=== PATIENT | male | born 1950 | race Caucasian/White ===

== ENCOUNTER 2022-03-09 10:33 | Outpatient (CLI) | payer MEDICARE, SELFPAY ==
[2022-03-09 22:04] LABS: Albumin* 4.5 g/dL (3.3-5.0); Chloride* 99 mmol/L (96-114)
[2022-03-09 22:05] LABS: Potassium* 4.2 mmol/L (3.6-5.1); Sodium* 134 mmol/L (135-149)
[2022-03-09 22:07] LABS: Alkaline Phosphatase* 119 U/L (40-150); Aspartate Amino Transferase* 39 U/L (12-35); Bilirubin Total* 1.7 mg/dL (0.1-1.5); Blood Urea Nitrogen* 12 mg/dL (7-30); Carbon Dioxide* 26 mmol/L (20-32); Creatinine* 1.3 mg/dL (0.5-1.5); Estimated Glomerular Filt Rate 58 ml/min
[2022-03-09 22:08] LABS: Alanine Aminotransferase* 23 U/L (4-50); Glucose* 80 mg/dL (60-115)
[2022-03-09 22:22] LABS: Vitamin D 25 Hydroxy* 35 ng/mL (30-80)
[2022-03-09 22:38] LABS: PSA Screen* 0.67 ng/mL (0.10-4.00)
[2022-03-09 22:57] LABS: Vitamin B12* 400 pg/mL (243-894)
[2022-03-13 03:53] LABS: Sex Hormone Binding Globulin 112 nmol/L (19-76); Testosterone, Adult Male 815 ng/dL (300-720); Testosterone, Free Calculation 69 pg/mL (47-244); Testosterone, Percentage Free 0.8 % (1.6-2.9)
== END 2022-03-09 10:34 | disposition home or self-care (01) ==
PROVIDERS: PCP Family Medicine; Visit Provider Family Medicine
DX: Z00.00 Encounter for general adult medical examination without abnormal findings (principal); D61.818 Other pancytopenia; E11.9 Type 2 diabetes mellitus without complications; E78.5 Hyperlipidemia, unspecified; K21.9 Gastro-esophageal reflux disease without esophagitis; K90.9 Intestinal malabsorption, unspecified; R53.83 Other fatigue; R79.89 Other specified abnormal findings of blood chemistry
CPT/HCPCS: 80053; 82306; 82607; 84153; 84270; 84402; 84403; 84443

== ENCOUNTER 2022-05-11 09:49 | Outpatient (CLI) | payer MEDICARE, SELFPAY ==
[2022-05-11 10:31] LABS: Creatinine* 1.3 mg/dL (0.5-1.5); Estimated Glomerular Filt Rate 58 ml/min
--- NOTE | 2022-05-11 11:00 | CRLHL7_ITS ---
For Patients: As a result of the Century Cures Act, medical imaging exams and procedure reports are released immediately into your electronic medical record. You may view this report before your referring provider. If you have questions, please contact your health care provider. INDICATION: LYMPHADENOPATHY COMPARISON: none TECHNIQUE: A CT volumetric acquisition was performed of the neck during intravenous infusion of 80 cc Isovue 370 nonionic intravenous contrast. Please note that all CT scans at this facility use dose modulation, iterative reconstruction, and/or weight-based dosing when appropriate to reduce radiation dose to as low as reasonably achievable. FINDINGS: The CT images demonstrate normal aeration of the mastoid air cells and middle ear cavities. The paranasal sinuses are clear. The nasopharynx appears normal. The parotid and submandibular glands are of normal size and have uniform enhancement. The oropharynx appears normal. The valleculae, epiglottis, aryepiglottic folds and piriform sinuses appear normal. There is a normal appearance of the larynx and subglottic trachea. The thyroid gland is of normal size and has uniform density. There is no evidence of lymphadenopathy within the anterior and posterior cervical triangles or within the supraclavicular region. Mild degenerative changes. Lung apices clear. IMPRESSION: No cervical adenopathy. Please note that all CT scans at this facility use dose modulation, iterative reconstruction, and/or weight-based dosing when appropriate to reduce radiation dose to as low as reasonably achievable. Dictated by Fab Gustafson MD @ 05/11/2022 1:21:07 PM (Electronically Signed)
--- NOTE | 2022-05-11 11:00 | CRLHL7_ITS ---
For Patients: As a result of the Century Cures Act, medical imaging exams and procedure reports are released immediately into your electronic medical record. You may view this report before your referring provider. If you have questions, please contact your health care provider. Indication: Lymphadenopathy Technique: Postcontrast CT chest, abdomen and pelvis. 80 cc Isovue 370 intravenous contrast. Please note that all CT scans at this facility use dose modulation, iterative reconstruction, and/or weight-based dosing when appropriate to reduce radiation dose to as low as reasonably achievable. Comparison: 06/08/2017 Findings: In the chest, the lungs are clear. Normal thyroid. No adenopathy. No fracture. No infiltrate or edema. No effusion or pneumothorax. No suspicious nodule. In the abdomen, there is a subcentimeter cyst within the dome of the liver. Normal gallbladder without calcified stones or biliary obstruction. Incidental calcification adjacent to the pancreatic tail. Normal spleen. Scarring involving the left kidney, unchanged. No hydronephrosis. Scarring at the right kidney also unchanged. No retroperitoneal or mesenteric adenopathy. Unremarkable stomach. No adrenal mass. In the pelvis, the bladder is normal. Mild-moderate pelvic free fluid is present. There is no bowel obstruction. No pelvic or inguinal adenopathy. Degenerative facet arthropathy lower lumbar spine with grade 1 degenerative spondylolisthesis of L4 on L5. Impression: No adenopathy of the chest, abdomen or pelvis. Mild-moderate pelvic free fluid, nonspecific. No bowel obstruction. No pulmonary nodule. Bilateral renal cortical scarring, chronic. Please note that all CT scans at this facility use dose modulation, iterative reconstruction, and/or weight-based dosing when appropriate to reduce radiation dose to as low as reasonably achievable. Dictated by Fab Gustafson MD @ 05/11/2022 1:17:45 PM (Electronically Signed)
== END 2022-05-11 09:50 | disposition home or self-care (01) ==
LOC: CT 09:51
PROVIDERS: PCP Family Medicine; Visit Provider Internal Medicine Hematology & Oncology
DX: R59.1 Generalized enlarged lymph nodes (principal); D61.818 Other pancytopenia
CPT/HCPCS: 36415; 70491; 71260; 74177; 82565; Q9967

== ENCOUNTER 2022-08-03 08:34 | Outpatient (CLI) | payer MEDICARE, SELFPAY | END 2022-08-03 08:35 | disposition home or self-care (01) | PROVIDERS: PCP Family Medicine; Visit Provider Family Medicine | DX: Z01.818 Encounter for other preprocedural examination (principal); E55.9 Vitamin D deficiency, unspecified; E78.5 Hyperlipidemia, unspecified; R53.83 Other fatigue; G62.9 Polyneuropathy, unspecified | CPT/HCPCS: 80048; 82306; 82607 ==

== ENCOUNTER 2022-08-08 07:53 | Outpatient (CLI) | payer MEDICARE, SELFPAY ==
--- NOTE | 2022-08-08 09:24 | P.ANES_ITS ---
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
== END 2022-08-08 07:54 | disposition home or self-care (01) ==
LOC: OP CLINIC 07:53
PROVIDERS: PCP Family Medicine; Visit Provider Surgery
DX: Z12.11 Encounter for screening for malignant neoplasm of colon (principal); Z80.0 Family history of malignant neoplasm of digestive organs
CPT/HCPCS: 00812; 45378; 99100; J2704

== ENCOUNTER 2022-09-27 13:00 | Outpatient (CLI) | payer MEDICARE, SELFPAY ==
[2022-09-27 21:14] LABS: Iron* 110 ug/dL (49-181)
[2022-09-27 21:24] LABS: Percent Iron Saturation 30 % (20-50); Total Iron Binding Capacity 371 ug/dL (261-462)
== END 2022-09-27 13:01 | disposition home or self-care (01) ==
LOC: LKVREF 13:01
PROVIDERS: PCP Family Medicine; Visit Provider Family Medicine
DX: D64.9 Anemia, unspecified (principal)
CPT/HCPCS: 82728; 83540; 83550

== ENCOUNTER 2023-01-31 08:52 | Outpatient (CLI) | payer MEDICARE, SELFPAY | END 2023-01-31 08:53 | disposition home or self-care (01) | LOC: NFLDREF 02-03 13:26 | PROVIDERS: PCP Family Medicine; Referring Provider Family Medicine; Visit Provider Family Medicine | DX: Z00.00 Encounter for general adult medical examination without abnormal findings (principal); E55.9 Vitamin D deficiency, unspecified; E78.5 Hyperlipidemia, unspecified; R53.83 Other fatigue; D51.9 Vitamin B12 deficiency anemia, unspecified; G62.9 Polyneuropathy, unspecified; Z12.5 Encounter for screening for malignant neoplasm of prostate | CPT/HCPCS: 80053; 80061; 82306; 84153 ==

== ENCOUNTER 2023-04-19 09:36 | Outpatient (CLI) | payer MEDICARE, SELFPAY | END 2023-04-19 09:37 | disposition home or self-care (01) | LOC: RAD 09:37 | PROVIDERS: PCP Family Medicine; Visit Provider Internal Medicine | DX: I49.9 Cardiac arrhythmia, unspecified (principal); I35.1 Nonrheumatic aortic (valve) insufficiency; R00.1 Bradycardia, unspecified | CPT/HCPCS: 93306 ==

== ENCOUNTER 2023-08-10 11:05 | Outpatient (CLI) | payer MEDICARE, SELFPAY | END 2023-08-10 11:06 | disposition home or self-care (01) | LOC: NFLDREF 08-13 02:42 | PROVIDERS: PCP Family Medicine; Referring Provider Family Medicine; Visit Provider Family Medicine | DX: N39.0 Urinary tract infection, site not specified (principal); D51.9 Vitamin B12 deficiency anemia, unspecified; D61.818 Other pancytopenia | CPT/HCPCS: 80053; 83615 ==

== ENCOUNTER 2023-09-13 13:01 | Outpatient (CLI) | payer MEDICARE, SELFPAY ==
--- OUTSIDE RECORDS SUMMARY | 2023-09-14 12:21 | XMS_ITS | Encounter Summary ---
Author Name Unknown Organization [facility] Address [facility] [place] [address] Care Team Providers Care Keg Header Name Role Phone Chalo Santo MD Unavailable No Ref-Primary, Physician Primary Care Provider Encounter Details Date Type Department Care Team (Late st Contact Info) Description 03/02/2023 [facility] Advice [address] [address] Earnestine Shrama Social History Tobacco Use Types Packs/Day Years Used Date Smoking Tobacco: Never Smokeless Tobacco: Never Alcohol Use Standard Drinks/Week Comments Yes 0 (1 standard drink = 0.6 oz pur e alcohol) PHQ-2 Answer Date Recorded PHQ-2 Score 2 02/28/2023 Adolescent Education Answer Date Record ed Getting School Help Needed Not on file 02/18 Sex and Gender Information Value Date Recorded Sex Assigned at Not on file Gender Identity Not on file Sexual Orientation Not on file documented as of this encounter Plan of Treatment Not on file documented as of this encounter Visit Diagnoses Not on filedocumented in this encounter Care Teams Keg Header Relationship Specialty Start Date End Date No Ref-Primary, Physician PCP - General 07/19/22 Chalo Santo MD [address] [place] [address] [place], [place] [address] Assigned Sleep Provider 02/27/20 documented as of this encounter
--- OUTSIDE RECORDS SUMMARY | 2023-09-14 12:21 | XMS_ITS | Continuity of Care Document ---
Author Name Unknown Organization [facility] Address [address] [address] [place] [address] Phone Care Team Providers Care Vessel Scrapper Name Role Phone Yary Gabriel Unavailable Unavailable Allergies, Adverse Reactions, Alerts Substance Reaction Status Criticality No Known Allergies Active No Inform ation Medications Medication Instructions Dosage Effective Dates (start - stop) Status Comments No Drug Therapy Prescribed Procedures Procedure Date Offic/outpt E&m Estab Mod-hi 2 17 Routine Serum Collection Gg; Iga, Igd, Igg, Igm, Ea Offic/outpt E&m Estab Mod-hi 2 16 Ugi Endo; Dx W/wo Collec Specm 16 Advance Directives Directive Yes / No Effective Date File Name No Information Encounters Encounter Description Practice Location Reason(s) For Visit Diagnoses Date Provider Providers Copied on Encounter [facility], [address] [address], [place], [place], [id number], [place] tel:[phone] [facility] No Information 7 Kathryn Pringle. [address] [facility], [facility] [address], [place], [place], [id number] , [place]. tel:[phone] Offic/outpt E&m Estab Mod-hi 2 [facility], [address] [address], [place], [place], [id number], [place] tel:[phone] [facility] GI Symptoms or Concerns (chief complaint) Alternating constipation and diarrheaWeight lossDietary counseling and surveillance 7 Kathryn Pringle. [address] [facility], [address], [id number] , . tel:[phone] Referring Provider: Sandra GRACIA, [address] [place] [address], [address]. tel:[phone] Offic/outpt E&m Estab Mod-hi 2 [facility], [address] [address], [place], [place], [id number], [place] tel:[phone] [facility] GI Symptoms or Concerns (chief complaint) Gastroesophageal reflux disease without esophagitisDietary counseling and surveillanceElevate d blood-pressure reading, w/o diagnosis of htn 6 Bentley Cash . [address] [place] [address], [place], [id number] , [place]. [phone] Referring Provider: Rian Fernández MD, [address] [place] [address], [address]. tel:[phone] [facility] [place], [address] [address], [place], [place], [id number], [place] tel:[phone] [facility] HeartburnHeartburn 6 Krysten Hyman. [address] [place] [address], [place], [id number] , [place]. [phone] Referring Provider: Rian Fernández MD, [address] [place] [address], [address]. tel:[phone] Family History Family Member Type Diagnosis Age At Onset Mother Problem (finding) malignant neop lasm of breast in first degree relative Mother Problem (finding) Thyroid disorder Mother Problem (finding) cancer of colon Sister Problem (finding) Alive and well Mother Problem (finding) malignant neoplasm of u terus Mother Problem (finding) Irritable bowel disease Father Problem (finding) Payers Payer name Insurance type Covered republican ID Authoriza tion(s) [employer] [place] [employer] [id number] Social History Type Description Quantity Date Captured Comments Alcohol Use Details Unknown Caffeine Use Details Unknown Tobacco Use Status Smoking Status No Information Sex Male Chief Complaint And Reason For Visit No Information Reason For Referral Reason For Referral No Information Plan Of Treatment Date Type Action Status Goal Lifestyle education geeta flores diet completed Goal Lifestyle education geeta flores diet completed History Of Present Illness Encounter Date Complaint History Of Prese nt Illness GI Symptoms or Concerns This is a pleasant 66-year-old male with past medical history significant for sleep apnea, diabetes, Meniere's disease, and malignant melanoma, presenting to clinic today to discuss alternating diarrhea and constipation.The patient states that he has a history of anxiety and panic attacks. His frequency of panic attacks have actually worsened over the last year. His symptoms do include palpitations and head fullness. In December, he told that large meals would be a trigger for his panic attack and therefore he has significantly decreased the amount of food that he is eating and feels this has been helping to manage his panic attacks. He had an evaluation with his primary clinic, which included labs, EKG, stress test, and an echocardiogram reportedly were all negative or normal. 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 He had developed some fullness and discomfort in his neck. 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 He was started on Prilosec 20 mg twice daily back in November. He is now taking it for three months and has had monthly exams through their office and it has been shrinking in size. He did have an upper endoscopy about a week ago, which was entirely normal. There is no evidence for Curtis's esophagus. He reports having occasional acid regurgitation and rare heartburn in the past. There was also occasional tongue irritation for about five to ten years. He attributes these symptoms to reflux and he no longer has them. He did lose 25 pounds recently with the Medifast diet. Now his weight has stabilized. There is occasional hoarseness and throat clearing, but no cough. There is no dysphagia, parvin Functional Status Date Functional Assessmen t No Information Medications Administered Medication Instructions Dosage Effective Dates (start - stop) Status Comments No Drug Therapy Prescribed Instructions Date Instruction Additional Infor willa The patient will und ergo celiac serology testing today. I asked that he reschedule his colonoscopy and we discussed the prep and strategies to help complete it. I asked that he start a fiber supplement daily to help regulate his bowel movements. He can use MiraLax as needed for constipation or Imodium for diarrhea. I stressed the importance of following up with his primary care provider regarding ongoing management of his panic attacks and anxiety. He will follow up in clinic as needed. Related to Alternating constipation and diarrhea Lifestyle education regarding di et Related to Dietary counseling and surveillance I recommend continui ng his treatment for now until the lesion is noted to have resolved. Once it resolves, I would wean down to once daily dosing and then consider slowly weaning off as tolerated. If symptoms return or the lesion returns, then we may have to consider restarting therapy. At that point, I would consider pH testing off of treatment to document the degree of reflux. This may help to guide treatment decisions for long-term therapy if needed. I will plan to see him on an as-needed basis. We discussed typical antireflux precautions as he is doing. I think with his recent weight loss, he has less likelihood of recurrent reflux issues in general. Related to Gastroesophageal reflux disease without esophagitis Lifestyle education regarding di et Related to Dietary counseling and surveillance Assessments Type Assessment Date No Information Patient Care Teams Name Effective Dates (start - stop) Status Members No Information
--- OUTSIDE RECORDS SUMMARY | 2023-09-14 12:21 | XMS_ITS | Encounter Summary ---
Author Name Unknown Organization [facility] Address [address] [place] [address]. [place] [address] Care Team Providers Care Store Person Name Role Phone [facility] Primary Care P jhonny Unavailable Chalo Santo MD Unavailable No Ref-Primary, Physician Primary Care Provider Encounter Details Date Type Department Care Team (Late st Contact Info) Description 10/08/2019 [facility] Medical Advice [address] [address] Melania Chang, [facility] Social History Tobacco Use Types Packs/Day Years Used Date Smoking Tobacco: Never Smokeless Tobacco: Never Alcohol Use Standard Drinks/Week Comments Yes 0 (1 standard drink = 0.6 oz pur e alcohol) Sex and Gender Information Value Date Recorded Sex Assigned at Not on file Gender Identity Not on file Sexual Orientation Not on file documented as of this encounter Plan of Treatment Not on file documented as of this encounter Visit Diagnoses Not on filedocumented in this encounter Care Teams Store Person Relationship Specialty Start Date End Date [facility] CLOSED PCP - General 10/27/14 05/15/22 No Ref-Primary, Physician PCP - General 07/19/22 Chalo Santo MD [address] [address] Assigned Sleep Provider 02/27/20 documented as of this encounter
--- OUTSIDE RECORDS SUMMARY | 2023-09-14 12:21 | XMS_ITS | Encounter Summary ---
Author Name Unknown Organization [place] Address [facility] [place] [address] Care Team Providers Care Customer Solutions Representative Name Role Phone [facility] Primary Care P jhonny Unavailable Chalo Santo MD Unavailable No Ref-Primary, Physician Primary Care Provider Encounter Details Date Type Department Care Team (Late st Contact Info) Description 10/25/2018 Orders Only [facility] [id number] [place] [address] Rosa Echevarria MD [address] [facility] [address] [place] [address] TEODORA on CPAP (Primary Dx) Social History Tobacco Use Types Packs/Day Years [...] documented as of this encounter Visit Diagnoses Diagnosis TEODORA on CPAP- Primary Obstructive sleep apnea (adult) (pediatric) documented in this encounter Care Teams Customer Solutions Representative Relationship Specialty Start Date End Date [facility] CLOSED PCP - General 10/27/14 05/15/22 No Ref-Primary, Physician PCP - General 07/19/22 Chalo Santo MD [address] [place] [address] Assigned Sleep Provider 02/27/20 documented as of this encounter
--- OUTSIDE RECORDS SUMMARY | 2023-09-14 12:21 | XMS_ITS | Data Portability ---
Author Name Unknown Address [address] [place] [address] Phone [phone] Organization [facility] Address [address] [facility] [address] [place] [address] Care Team Providers Care Lot Attendant Name Role Phone DAISHA ANDREWS Primary Care Provider Assessment No assessment recorded. Plan of Treatment Reminders Order Date Submit Date Provider Last Modified By Organization Details Last Modified Time Details Appointments None recorded. Lab urinalysis , dipstick 2023 024 [facility], [address], [place], [address], 14:06:10 Referral None recorded. Procedures bladder scan (PROC) 2023 024 [facility], [address], [place], [address], 14:06:06 Surgeries None recorded. Imaging None recorded. Medication Orders None recorded. Patient TargetsNo targets recorded. Patient Instructions Encounter Date Encounter Id Patient Instructions Last Modified By Organization Details Last Modified Time 09/07/2023 [id number] will send urine for cirrus and call with report. [email or web address] Not available 09/07/2023 14:22:14 Reason for Referral None Reported. Results Created Date Observation Date Name Description Value Unit Range Abnormal Flag LastModifiedBy Organization Detail LastModifiedTime 09/07/19 24 09/07/2023 bladd er scan (PROC ) Volume (in mL) 0 Not Available [facility] [address], [place], [address], 09/07/2023 14:05:40 09/07/19 24 09/07/2023 urina lysis , dipst ick Color-Status Yellow Not Available [facility] [address], [place], [address], 09/07/2023 14:03:43 09/07/19 24 09/07/2023 urina lysis , dipst ick Clarity-Stat us Clear Not Available [facility] [address], [place], [address], 09/07/2023 14:03:43 09/07/19 24 09/07/2023 urina lysis , dipst ick Sp Judsonia-Stat us 1.015 Not Available [facility] [address], [place], [address], 09/07/2023 14:03:43 09/07/19 24 09/07/2023 urina lysis , dipst ick pH-Status 5.5 Not Available [facility] [address], [place], [address], 09/07/2023 14:03:43 09/07/19 24 09/07/2023 urina lysis , dipst ick Nitrates-Sta tus negati ve Not Available [facility] [address], [place], [address], 09/07/2023 14:03:43 09/07/19 24 09/07/2023 urina lysis , dipst ick Blood-Status Negati ve Not Available [facility] [address], [place], [address], 09/07/2023 14:03:43 09/07/19 24 09/07/2023 urina lysis , dipst ick Leuko-Status Negati ve Not Available [facility] [address], [place], [address], 09/07/2023 14:03:43 09/07/19 24 09/07/2023 urina lysis , dipst ick Specimen Type Voided Not Available [facility] [address], [place], [address], 09/07/2023 14:03:43 09/07/19 24 09/07/2023 urina lysis , dipst ick Performed by Anand mcfadden RN Not Available [facility] [address], [place], [address], 09/07/2023 14:03:43 Result Notes None recorded. Procedures Surgical History Date Name Laterality Status Provider Name and Address Organization Details Recorded Time 09/07/19 24 Urinalysis completed [facility] 09/07/2023 14:02:41 09/07/19 24 Bladder Scan completed [facility] 09/07/2023 14:02:47 05/07/19 23 total replacement of left hip joint completed [facility] 09/07/2023 14:04:17 05/07/19 14 excision of melanoma completed [facility] 09/07/2023 14:05:31 Imaging Results None recorded. Procedure Notes None recorded. Medical Equipment None Reported. Allergies No known drug allergies Medications Name Sig Start Date Stop Date Status Note LastModified by Organization Details LastModified Time gabapentin 300 mg capsule TAKE 1 CAPSULE BY MOUTH 1 HOUR BEFORE BEDTIME FOR 7 DAYS. THEN TAKE 2 CAPSULES 1 HOUR BEFORE BEDTIME 09/06 completed Not Available Not Available Not Available Vitals Date Recorded Body height Body mass index (BMI) Body weight Provider Name and Address Organization Details Last Updated DateTime 09/07/2023 185.42 cm 21.6 kg/m2 95361.15 g Bessie Reyes [facility] 09/07/2023 14:01:57 Social History Question Answer Notes LastModified by Organizat ion Details LastModified Time Tobacco Smoking Status Former Smoker [facility] 09/07/2023 14:03:31 What Is Your Level Of Alcohol Consumption? None Information not available 09/07/2023 When Did You Quit Smoking? 16+yearssinc elastcigaret te cwill5 Information not available 09/07/2023 What Was The Date Of Your Most Recent Tobacco Screening? 09/07/2023 Information not available 09/07/2023 Has Tobacco Cessation Counseling Been Provided? No Information not available 09/07/2023 Do You Or Have You Ever Used Any Other Forms Of Tobacco Or Nicotine? No Information not available 09/07/2023 Sex: Male Functional Status None recorded. Mental Status None recorded. Family History Relationship Description Onset Age of this Age Resolved Age Notes Unspecified Relation Family history of prostate cancer Medical History No medical history recorded. Past Encounters Encounter ID Performer Location Encounter Start Date Encounter Closed Date Diagnosis/Indication Diagnosis SNOMED-CT Code [id number] Constantino Cheung MD [facility] [address] [facility] [place] [address] 09/07/2023 13:45:46 09/10/2023 13:39:13 Dysuria [id number] Health Concerns Section Related Observation LastModified by Organization Detai ls LastModified Time None Recorded Concern Status LastModified by Organization Details LastModified Time None Recorded Advance Directives Directive None Recorded Payers Encounter Date Sequence Insurance Name Policy Number Policy Acosta Covered Member ID Acosta Member ID Guarantor Name 09/07/2023 1 [facility] [id number] Geremias Dyson [id number] Geremias Dyson Notes Date Note Type Note Provider Name and Address Organization Details Recorded Time 09/07/2023 text/html HPI Notes: seeing for dysuria at start of stream feels at end of penis. started imn July became worse and now been improving. no gross heme, PSA last Fall was 0.71, UA clear and PVR 0ml today. no prostate or bladder meds. no hx straddle injury, no prostate or bladder surgery. force of stream no change. nocturia 1-2x, daytime frequency OK. no split stream or spraying. a paternal cousin had CaP. Constantino Cheung MD [address] [facility],[address], [place], [address], [facility] 09/07/2023 14:23:15
--- OUTSIDE RECORDS SUMMARY | 2023-09-14 12:21 | XMS_ITS | Referral Summary ---
Author Name Unknown Organization [place] Address [address] [place] [address]. [place] [address] Care Team Providers Care Nursing Scheduler Name Role Phone Chalo Santo MD Unavailable No Ref-Primary, Physician Primary Care Provider Allergies No known active allergies Medications Medication Sig Dispensed Refills Start Date End Date Status Digestive Enzymes (BETAINE HCL PO) Take 2-4 capsules by mouth daily Per pt, takes with 4 to 8 ounces of protein Active Nutritional Supplements (ADULT NUTRITIONAL SUPPLEMENT + OR) Vitamin D3 + K2 liquid. Pt uses 16 drops daily. Active MAGNESIUM PO Take 0.25-0.5 teaspoonful by mouth daily Natural Vitality Calm Magnesium Powder. Pt alternates between 1/4 and 1/2 teaspoon of powder, every other day; mixes with 16 oz of warm water. Active UNABLE TO FIND Apply 1 spray topically daily Liquid Magnesium Body [place]. 1 spray on each thigh. Active Active Problems Problem Noted Date Diagnosed Date Hip fracture 05/11/2022 Severe obstructive sleep apnea 10/14/2019 Social History Tobacco Use Types Packs/Day Years Used Date Smoking Tobacco: Never Smokeless Tobacco: Never Tobacco Cessation:Counseling Given: Not Answered Alcohol Use Standard Drinks/Week Comments Yes 0 (1 standard drink = 0.6 oz pur e alcohol) PHQ-2 Answer Date Recorded PHQ-2 Score 2 02/28/2023 Adolescent Education Answer Date Record ed Getting School Help Needed Not on file 02/18 Sex and Gender Information Value Date Recorded Sex Assigned at Not on file Gender Identity Not on file Sexual Orientation Not on file Last Filed Vital Signs Vital Sign Reading Time Taken Comments Blood Pressure 125/55 05/13/2022 3:57 PM RECEIVER DISPATCHER Pulse 63 05/13/2022 3:57 PM RECEIVER DISPATCHER Temperature 36.8 ??C (98.3 ??F) 05/13/2022 3:57 PM CS T Respiratory Rate 16 05/13/2022 3:57 PM RECEIVER DISPATCHER Oxygen Saturation 97% 05/13/2022 3:57 PM RECEIVER DISPATCHER Inhaled Oxygen Concentration - - Weight 72.6 kg (160 lb) 02/28/2023 3:35 PM CDT Height 185.4 cm (6' 1) 02/28/2023 3:35 PM CDT Body Mass Index 21.11 02/28/2023 3:35 PM CDT Plan of Treatment Not on file Medical Devices Implanted Type Area Marketing Communications Manager Device Identifier Shelf Expiration Date Model / Serial / Lot Imp Cable Zim Cerclage 1.8x25mm 2231-08-23 - [id number] Implanted:Qty : 1 on 05/12/2022 by Be Fletcher MD at [facility] Metallic Hardware/An chor Left: Hip [employer] [id number] 08/16/20312-0 08-22 / [id number] Shell Actb 56mm Hip Ch Urbina Trdnt Ii Psl F Strl 74--56f - [id number] Implanted:Qty : 1 on 05/12/2022 by Be Fletcher MD at [facility] Total Joint Component/I nsert Left: Hip MARI [employer] [id number] 03/02/2027 742-11-56 F / / [id number] Insert Blake 36mm 0d F Hip X3 Trdnt 723-00-36f - [id number] Implanted:Qty : 1 on 05/12/2022 by Be Fletcher MD at [facility] Total Joint Component/I nsert Left: Hip [employer] [id number] 02/06/2027 723-00-36 F / / [id number] Insignia Hip Stem, Size 6, Nk Length 35mm, Stem Length 107mm, Std Offset Implanted:Qty : 1 on 05/12/2022 by Be Fletcher MD at [facility] Total Joint Component/I nsert Left: Hip MARI [id number] 01/19/2027 5087-7150 / / [id number] Imp Head Femoral Strk Biolox Delta Ceramic 36mm +2.5mm - [id number] Implanted:Qty : 1 on 05/12/2022 by Be Fletcher MD at [facility] Total Joint Component/I nsert Left: Hip [employer] [id number] 01/12/2027 6570-0-53 6 / [id number] Procedures Procedure Name Priority Date/Time Associated Diagnosis Comments GLUCOSE Routine 05/13/2022 6:57 AM RECEIVER DISPATCHER from Last 3 Months or Most Recently Relevant to Health Maintenance Results * (ABNORMAL) Glucose (05/13/2022 6:57 AM RECEIVER DISPATCHER) Glucose 133(H) 70 - 99 mg/dL 05/13/2022 7:25 AM RECEIVER DISPATCHER LABORATORY Blood STRUCTURE OF LEFT HAND / Unknown Venipuncture / Unknown 05/13/2022 6:57 AM RECEIVER DISPATCHER 05/13/2022 7:01 AM RECEIVER DISPATCHER Carlos Oleary MD LAB - BLOOD ORDERABL ES LABORATORY [facility] [address] Lab (1st floor, no room number) [place] [address] [phone] from Last 3 Months or Most Recently Relevant to Health Maintenance Advance Directives For more information, please contact: [phone] * Full Code (Latest Code Status on File) Date Activated Date Inactivated Comments 05/12/2022 7:04 PM 05/13/2022 7:02 PM All basic and advanced life-sustaining interventions are performed as appropriate Question Answer Comments Code status determined by: Unable to det ermine; FULL CODE until documents or legal decision maker available * Full Code Date Activated Date Inactivated Comments 05/11/2022 6:50 PM 05/12/2022 7:04 PM All basic and advanced life-sustaining interventions are performed as appropriate Question Answer Comments Code status determined by: Discussion with patie nt/ legal decision maker Care Teams Nursing Scheduler Relationship Specialty Start Date End Date No Ref-Primary, Physician PCP - General 07/19/22 Chalo Santo MD [address] [address] Assigned Sleep Provider 02/27/20
--- OUTSIDE RECORDS SUMMARY | 2023-09-14 12:21 | XMS_ITS | Encounter Summary ---
Author Name Unknown Organization [place] Address [address] [place] [address] Care Team Providers Care Veterinary Receptionist Name Role Phone [facility] Primary Care P jhonny Unavailable Chalo Santo MD Unavailable No Ref-Primary, Physician Primary Care Provider Encounter Details Date Type Department Care Team (Late st Contact Info) Description 10/28/2021 [facility] [place] Medical Advice [facility] [address] [phone] Marianna Irwin CMA Social History Tobacco Use Types Packs/Day Years Used Date Smoking Tobacco: Never Smokeless Tobacco: Never Alcohol Use Standard Drinks/Week Comments Yes 0 (1 standard drink = 0.6 oz pur e alcohol) PHQ-2 Answer Date Recorded PHQ-2 Score 2 10/04/2021 Sex and Gender Information Value Date Recorded Sex Assigned at Not on file Gender Identity Not on file Sexual Orientation Not on file documented as of this encounter Plan of Treatment Not on file documented as of this encounter Visit Diagnoses Not on filedocumented in this encounter Care Teams Veterinary Receptionist Relationship Specialty Start Date End Date [facility] CLOSED PCP - General 10/27/14 05/15/22 No Ref-Primary, Physician PCP - General 07/19/22 Chalo Santo MD [address] [place], [place] [address] Assigned Sleep Provider 02/27/20 documented as of this encounter
--- OUTSIDE RECORDS SUMMARY | 2023-09-14 12:21 | XMS_ITS | Clinical Summary ---
Author Name Unknown Organization [place] Address [address] [place] [address]. [place] [address] Care Team Providers Care Fruit Picker Name Role Phone Chalo Santo MD Unavailable [...] 1 spray topically daily Liquid Magnesium Body [place]. 1 spray on each thigh. Active Active [...] Comments Blood Pressure 125/55 05/13/2022 3:57 PM TEMPERATURE REGULATOR Pulse 63 05/13/2022 3:57 PM TEMPERATURE REGULATOR Temperature 36.8 ??C (98.3 ??F) 05/13/2022 3:57 PM CS T Respiratory Rate 16 05/13/2022 3:57 PM TEMPERATURE REGULATOR Oxygen Saturation 97% 05/13/2022 3:57 PM TEMPERATURE REGULATOR Inhaled Oxygen Concentration - - Weight 72.6 kg (160 lb) 02/28/2023 3:35 PM CDT Height 185.4 cm (6' 1) 02/28/2023 3:35 PM CDT Body Mass Index 21.11 02/28/2023 3:35 PM CDT Plan of Treatment Health Maintenance Due Date Last Done Comments ADVANCE CARE PLANNING 1949 ANNUAL REVIEW OF HM ORDERS 1949 CT COLONOGRAPHY 1949 FIT 1949 FLEX SIG 1949 sDNA (Cologuard) 1949 COLONOSCOPY 08/31/1959 COLORECTAL CANCER SCREENING 08/31/1959 HEPATITIS C SCREENING 08/31/1967 DTAP/TDAP/TD IMMUNIZATION (1 - Tdap) 1974 LIPID 1989 ZOSTER IMMUNIZATION (1 of 2) 08/31/1999 RSV VACCINE ( & 60+) (1 - 1-dose 60+ series) 2009 FALL RISK ASSESSMENT 2014 MEDICARE ANNUAL WELLNESS VISIT 2014 Pneumococcal Vaccine: 65+ Years (1 of 1 - PCV) 2014 COVID-19 Vaccine (1 - 2022- season) 2023 INFLUENZA VACCINE (#1) 2023 PHQ-2 (once per calendar year) 2023 02/28/2023, 10/04/2021 GLUCOSE 05/13/2025 05/13/2022, 10/2022, 05/12/2022, Additional history exists HPV IMMUNIZATION Aged Out No longer e ligible based on patient's age to complete this topic IPV IMMUNIZATION Aged Out No longer e ligible based on patient's age to complete this topic MENINGITIS IMMUNIZATION Aged Out No l onger eligible based on patient's age to complete this topic RSV MONOCLONAL ANTIBODY Aged Out No l onger eligible based on patient's age to complete this topic Medical Devices Implanted Type Area Radiology Nurse Device Identifier Shelf Expiration Date Model / Serial / Lot Imp Cable Zim Cerclage 1.8x25mm 2231-08-23 - [id number] Implanted:Qty : 1 on 05/12/2022 by Be Fletcher MD at [facility] Metallic Hardware/An chor Left: Hip [employer] [id number] 08/16/2031 00-2232-0 08-22 / [id number] Shell Actb 56mm Hip Ch Urbina Trdnt Ii Psl F Strl 7406-17-56f - [id number] Implanted:Qty : 1 on 05/12/2022 by Be Fletcher MD at [facility] Total Joint Component/I nsert Left: Hip [employer] [id number] 03/02/2027 742-11-56 F / / [id number] Insert Blake 36mm 0d F Hip X3 Trdnt 723-00-36f - [id number] Implanted:Qty : 1 on 05/12/2022 by Be Fletcher MD at [facility] Total Joint Component/I nsert Left: Hip [employer] [id number] 02/06/2027 723-00-36 F / / [id number] Insignia Hip Stem, Size 6, Nk Length 35mm, Stem Length 107mm, Std Offset Implanted:Qty : 1 on 05/12/2022 by Be Fletcher MD at [facility] Total Joint Component/I nsert Left: Hip MARI [id number] 01/19/2027 1177-1378 / / [id number] Imp Head Femoral Strk Biolox Delta Ceramic 36mm +2.5mm - [id number] Implanted:Qty : 1 on 05/12/2022 by Be Fletcher MD at [facility] Total Joint Component/I nsert Left: Hip [employer] [id number] 01/12/2027 6570-0-53 6 / / [id number] Procedures Procedure Name Priority Date/Time Associated Diagnosis Comments GLUCOSE Routine 05/13/2022 6:57 AM TEMPERATURE REGULATOR from Last 3 Months or Most Recently Relevant to Health Maintenance Results * (ABNORMAL) Glucose (05/13/2022 6:57 AM TEMPERATURE REGULATOR) Glucose 133(H) 70 - 99 mg/dL 05/13/2022 7:25 AM TEMPERATURE REGULATOR LABORATORY Blood STRUCTURE OF LEFT HAND / Unknown Venipuncture / Unknown 05/13/2022 6:57 AM TEMPERATURE REGULATOR 05/13/2022 7:01 AM TEMPERATURE REGULATOR Carlos Oleary MD LAB - BLOOD ORDERABL ES LABORATORY [facility] [address] [facility] Lab (1st floor, no room number) [place] [address], [facility] [phone] from Last 3 Months or Most Recently Relevant to Health Maintenance Advance Directives For more information, please contact: [phone] * Full Code (Latest Code Status on [...] patie nt/ legal decision maker Care Teams Fruit Picker Relationship Specialty Start Date End Date No Ref-Primary, Physician PCP - General 07/19/22 Chalo Santo MD [address] [address] Assigned Sleep Provider 02/27/20
== END 2023-09-13 13:02 | disposition home or self-care (01) ==
LOC: NFLDREF 09-14 12:19
PROVIDERS: PCP Family Medicine; Referring Provider Family Medicine; Visit Provider Family Medicine
DX: D51.9 Vitamin B12 deficiency anemia, unspecified (principal); E55.9 Vitamin D deficiency, unspecified
CPT/HCPCS: 82607; 82652

== ENCOUNTER 2023-11-06 13:00 | Outpatient (CLI) | payer MEDICARE, SELFPAY ==
--- OUTSIDE RECORDS SUMMARY | 2023-11-09 10:02 | XMS_ITS | Encounter Summary ---
Author Organization [place] Address [facility] [place] [address] Care Team Providers Care Pipe Wrapping Machine Operator Name Role Phone [facility] Primary Care P jhonny Unavailable Chalo Santo MD Unavailable No Ref-Primary, Physician Primary Care Provider Encounter Details Date Type Department Care Team (Late st Contact Info) Description 10/28/2021 [facility] [place] Adv[place] [facility] [address] [phone] Marianna Irwin CMA Social History Tobacco Use [...] on filedocumented in this encounter Care Teams Pipe Wrapping Machine Operator Relationship Specialty Start Date End Date [facility] CLOSED PCP - General 10/27/14 05/15/22 No Ref-Primary, Physician PCP - General 07/19/22 Chalo Santo MD [address] [place], [place] [id number] Assigned Sleep Provider 02/27/20 documented as of this encounter
--- OUTSIDE RECORDS SUMMARY | 2023-11-09 10:02 | XMS_ITS | Clinical Summary ---
Author Organization [facility] [employer] Address [place], [place] [address] Care Team Providers Care Vault Installer Name Role Phone Anjana Victor Primary Care Provider Unavail able Allergies No known active allergies Medications Medication Sig Dispensed Refills Start Date End Date Status Magnesium 30 mg tablet Take 20 mg by mouth once daily. 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 ECHO 04/2023, ZIO MAILED 09/03/BRADYCARDIA /PT states feeling not too bad./No unusual cardiac symptoms from what he is already experiencing./Increa sed heart rate with pounding. 1 or 2 irregular beats /Discuss swelling in lower legs and feet./) 10/12/2023 Travel 09/03/2023 Orders Only [facility] [address] [place] [address] Jos Rosado 1 scan: (1-Ord) ZIO FINAL REPORT from Last 3 Months Social History Tobacco Use Types Packs/Day Years Used Date Smoking Tobacco: Former Cigarettes Smokeless Tobacco: Never Tobacco Cessation:Counseling Given: Not Answered Alcohol Use Standard Drinks/Week Comments Not Currently 0 (1 standard drink = 0.6 oz pur e alcohol) Social Connections Answer Date Recorded Frequency of Communication with Friends and Fami ly Not on file 03/23/2023 Sex and Gender Information Value Date Recorded Sex Assigned at Not on file Gender Identity Not on file Sexual Orientation Not on file Obstetrics History Last Filed Vital Signs Vital Sign Reading Time Taken Comments Blood Pressure 116/60 10/12/2023 11:39 AM CDT Pulse 56 10/12/2023 11:39 AM CDT Temperature 36.8 ??C (98.2 ??F) 01/26/2009 11:52 AM C DT Respiratory Rate 16 01/26/2009 12:34 PM CDT Oxygen Saturation 100% 10/12/2023 11:39 AM CDT Inhaled Oxygen Concentration - - Weight 75.6 kg (166 lb 9.6 oz) 10/12/2023 11:39 AM CDT Height 188 cm (6' 2) 10/12/2023 11:39 AM CDT Body Mass Index 21.39 10/12/2023 11:39 AM CDT Plan of Treatment Health Maintenance Due Date Last Done Comments Pneumococcal series for age 65+ (1 of 2 - PCV) 956 Tdap 1960 Depression screening for age 12+ 1961 Hepatitis C screening for age 18-79 08/31/1967 Tetanus booster 1969 Colonoscopy through age 75 1994 Lipids for age 45-75 1994 Zoster (shingles) series for age 50+ (1 of 2) 08/31/19 00 AAA screening age 65-74 2014 Medicare Wellness for age 65+ 2014 COVID-19 vaccine series ( - season) Influenza for age 65+ 01/06/2024 BMI (ht and wt on same day) for age 18+ 10/11/2024 0 10/12/2023 Procedures Procedure Name Priority Date/Time Associated Diagnosis Comments EXTENDED HOLTER Routine 09/20/2023 Bradycardia from Last 3 Months Results * ZIO PATCH XT - weekly to monthly symptoms. (09/20/2023) Narrative RayshawnHarish Mita-Pita - 09/20/2023 Patient enrolled with vendor this date for Extended Holter home enrollment, duration 7 days. Device will be mailed to patient by vendor. ??Report will be found in the Procedures tab approximately 7-10 days after end of monitor period. Lou Kidd MD CARDIAC SERVICES ORD from Last 3 Months Advance Directives * Full Code (Latest Code Status on File) Date Activated Date Inactivated Comments 01/26/2009 11:47 AM 01/26/2009 3:48 PM * Full Code Date Activated Date Inactivated Comments 01/26/2009 9:00 AM 01/26/2009 11:47 AM Care Teams Vault Installer Relationship Specialty Start Date End Date Anjana Victor PCP - General 01/22/09
--- OUTSIDE RECORDS SUMMARY | 2023-11-09 10:02 | XMS_ITS | Encounter Summary ---
Author Organization [place] Address [address] [place] [address]. [place] [address] Care Team Providers Care Doors Prefitter Name Role Phone [facility] Primary Care P jhonny Unavailable Chalo Santo MD Unavailable No Ref-Primary, Physician Primary Care Provider Encounter Details Date Type Department Care Team (Late st Contact Info) Description 10/08/2019 [facility] [place] Medical Advice [address] [phone] Melania Chang, [facility] Social History Tobacco Use Types Packs/Day Years [...] on filedocumented in this encounter Care Teams Doors Prefitter Relationship Specialty Start Date End Date [facility] CLOSED PCP - General 10/27/14 05/15/22 No Ref-Primary, Physician PCP - General 07/19/22 Chalo Santo MD [address] [address] Assigned Sleep Provider 02/27/20 documented as of this encounter
--- OUTSIDE RECORDS SUMMARY | 2023-11-09 10:02 | XMS_ITS | Clinical Summary ---
Author Organization [place] Address [address] [place] [address]. [place] [address] Care Team Providers Care Shuttle Spotter Name Role Phone Chalo Santo MD Unavailable [...] 1 spray topically daily Liquid Magnesium Body [place]. 1 spray on each thigh. Active Active [...] Comments Blood Pressure 125/55 05/13/2022 3:57 PM SLACK LINE YARDER Pulse 63 05/13/2022 3:57 PM SLACK LINE YARDER Temperature 36.8 ??C (98.3 ??F) 05/13/2022 3:57 PM CS T Respiratory Rate 16 05/13/2022 3:57 PM SLACK LINE YARDER Oxygen Saturation 97% 05/13/2022 3:57 PM SLACK LINE YARDER Inhaled Oxygen Concentration - - Weight 72.6 [...] COVID-19 Vaccine (1 - 2022- season) 2023 PHQ-2 (once per calendar year) 2023 02/28/2023, 10/04/2021 INFLUENZA VACCINE (#1) 2024 GLUCOSE 05/13/2025 05/13/2022, 10/2022, 05/12/2022, Additional history [...] this topic Medical Devices Implanted Type Area Data Migration Consultant Device Identifier Shelf Expiration Date Model / Serial / Lot Imp Cable Zim Cerclage 1.8x25mm 2231-08-23 - [id number] Implanted:Qty : 1 on 05/12/2022 by Be Fletcher MD at [facility] Metallic Hardware/An chor Left: Hip [employer] [id number] 08/16/2031 00-2232-0 08-22 / [id number] Shell Actb 56mm Hip Ch Urbina Trdnt Ii Psl F Strl 7406-17-56f - [id number] Implanted:Qty : 1 on 05/12/2022 by Be Fletcher MD at [facility] Total Joint Component/I nsert Left: Hip [employer] [id number] 03/02/2027 742-11-56 F / / [id number] Insert Blake 36mm 0d F Hip X3 Trdnt 723-00-36f - [id number] Implanted:Qty : 1 on 05/12/2022 by Be Fletcher MD at [facility] Total Joint Component/I nsert Left: Hip MARI [employer] [id number] 02/06/2027 723-00-36 F / / [id number] Insignia Hip Stem, Size 6, Nk Length 35mm, Stem Length 107mm, Std Offset Implanted:Qty : 1 on 05/12/2022 by Be Fletcher MD at [facility] Total Joint Component/I nsert Left: Hip MARI [id number] 01/19/2027 2501-9940 / / [id number] Imp Head Femoral Strk Biolox Delta Ceramic 36mm +2.5mm - [id number] Implanted:Qty : 1 on 05/12/2022 by Be Fletcher MD at [facility] Total Joint Component/I nsert Left: Hip [employer] [id number] 01/12/2027 6570-0-53 6 / / [id number] Procedures Procedure Name Priority Date/Time Associated Diagnosis Comments GLUCOSE Routine 05/13/2022 6:57 AM SLACK LINE YARDER from Last 3 Months or Most Recently Relevant to Health Maintenance Results * (ABNORMAL) Glucose (05/13/2022 6:57 AM SLACK LINE YARDER) Glucose 133(H) 70 - 99 mg/dL 05/13/2022 7:25 AM SLACK LINE YARDER LABORATORY Blood STRUCTURE OF LEFT HAND / Unknown Venipuncture / Unknown 05/13/2022 6:57 AM SLACK LINE YARDER 05/13/2022 7:01 AM SLACK LINE YARDER Carlos Oleary MD LAB - BLOOD ORDERABL ES LABORATORY [facility] [address] Lab (1st floor, no room number) [place] [address], [facility] [phone] from Last 3 Months or Most Recently Relevant to Health Maintenance Advance Directives For more information, please contact: [phone] * Full Code (Latest Code Status on [...] patie nt/ legal decision maker Care Teams Shuttle Spotter Relationship Specialty Start Date End Date No Ref-Primary, Physician PCP - General 07/19/22 Chalo Santo MD [address] [address] Assigned Sleep Provider 02/27/20
--- OUTSIDE RECORDS SUMMARY | 2023-11-09 10:02 | XMS_ITS | Encounter Summary ---
Author Organization [place] Address [address] [place] [address]. [place] [address] Care Team Providers Care Maintenance Shop Welder Name Role Phone [facility] Primary Care P jhonny Unavailable Chalo Santo MD Unavailable No Ref-Primary, Physician Primary Care Provider Encounter Details Date Type Department Care Team (Late st Contact Info) Description 01/06/2021 [facility] [place] Medical Advice [address] [phone] Asif Bertrand MA Social History Tobacco Use Types Packs/Day Years [...] on filedocumented in this encounter Care Teams Maintenance Shop Welder Relationship Specialty Start Date End Date [facility] CLOSED PCP - General 10/27/14 05/15/22 No Ref-Primary, Physician PCP - General 07/19/22 Chalo Santo MD [address] [address] Assigned Sleep Provider 02/27/20 documented as of this encounter
--- OUTSIDE RECORDS SUMMARY | 2023-11-09 10:02 | XMS_ITS | Continuity of Care Document ---
Author Organization [facility] Address [address] [address] [place] [address] Phone Care Team Providers Care Bail Attacher Name Role Phone Yary Gabriel Unavailable Unavailable [...] Diagnoses Date Provider Providers Copied on Encounter [facility], [address] [address], [place], [place], [id number], [place] tel:[phone] [facility] No Information 7 Kathryn Pringle. [address] [address], [place], [place], [id number] , [place]. [phone] Offic/outpt E&m Estab Mod-hi 2 [facility], [address] [address], [place], [place], [id number], [place] tel:[phone] [facility] GI Symptoms or Concerns (chief complaint) Alternating constipation and diarrheaWeight lossDietary counseling and surveillance 7 Kathryn Pringle. [address] [address], [place], [place], [id number] , . tel:[phone] Referring Provider: Sandra GRACIA, [address] [place] [address], [address]. tel:[phone] Offic/outpt E&m Estab Mod-hi 2 [facility], [address] [address], [place] [place], [id number], [place] tel:[phone] [facility] GI Symptoms or Concerns (chief complaint) Gastroesophageal reflux disease without esophagitisDietary counseling and surveillanceElevate d blood-pressure reading, w/o diagnosis of htn 6 Bentley Cash . [address] [place] [address], [place], [place], [id number] , [place]. [phone] Referring Provider: Rian Fernández MD, [address] [place] [address], [address]. tel:[phone] [facility] [place], [address] [address], [place], [place], [id number], [place] tel:[phone] [facility] HeartburnHeartburn 6 Krysten Hyman. [address] [place] [address], [place], [place], [id number] , [place]. tel:[phone] Referring Provider: Rian Fernández MD, [address] [place] [address], [address]. tel:[phone] Family History Family Member Type Diagnosis Age At Onset Mother Problem (finding) malignant neop lasm of breast in first degree relative Mother Problem (finding) Thyroid disorder Mother Problem (finding) cancer of colon Sister Problem (finding) Alive and well Mother Problem (finding) malignant neoplasm of u terus Mother Problem (finding) Irritable bowel disease Father Problem (finding) Payers Payer name Insurance type Covered libertarian ID Authoriza tion(s) Blue Cross [place] Blue BL [id number] Social History Type Description Quantity Date Captured Comments Alcohol Use Details Unknown Caffeine Use Details Unknown Tobacco Use Status Smoking Status No Information Sex Male Chief Complaint And Reason For Visit No Information Reason For Referral Reason For Referral No Information Plan Of Treatment Date Type Action Status Goal Lifestyle education regardashley flores diet completed Goal Lifestyle education geeta [...] his neck. He underwent evaluation by an cloth finishing range operator chief and was found to have a vocal [...]
--- OUTSIDE RECORDS SUMMARY | 2023-11-09 10:02 | XMS_ITS | Referral Summary ---
Author Organization [facility] Address [address] [place] [address]. [place] [address] Care Team Providers Care Milled Rubber Tender Name Role Phone Chalo Santo MD Unavailable [...] 1 spray topically daily Liquid Magnesium Body [place]. 1 spray on each thigh. Active Active [...] Comments Blood Pressure 125/55 05/13/2022 3:57 PM LPN CARE MANAGER Pulse 63 05/13/2022 3:57 PM LPN CARE MANAGER Temperature 36.8 ??C (98.3 ??F) 05/13/2022 3:57 PM CS T Respiratory Rate 16 05/13/2022 3:57 PM LPN CARE MANAGER Oxygen Saturation 97% 05/13/2022 3:57 PM LPN CARE MANAGER Inhaled Oxygen Concentration - - Weight 72.6 kg (160 lb) 02/28/2023 3:35 PM CDT Height 185.4 cm (6' 1) 02/28/2023 3:35 PM CDT Body Mass Index 21.11 02/28/2023 3:35 PM CDT Plan of Treatment Not on file Medical Devices Implanted Type Area Fish And Wildlife Technician Device Identifier Shelf Expiration Date Model / Serial / Lot Imp Cable Zim Cerclage 1.8x25mm 2231-08-23 - [id number] Implanted:Qty : 1 on 05/12/2022 by Be Fletcher MD at [facility] Metallic Hardware/An chor Left: Hip [employer] [id number] 08/16/20312-0 08-22 / [id number] Shell Actb 56mm Hip Ch Urbina Trdnt Ii Psl F Strl 74--56f - [id number] Implanted:Qty : 1 on 05/12/2022 by Be Fletcher MD at [facility] Total Joint Component/I nsert Left: Hip [employer]I [employer] [id number] 03/02/2027 742-11-56 F / / [id number] Insert Blake 36mm 0d F Hip X3 Trdnt 723-00-36f - [id number] Implanted:Qty : 1 on 05/12/2022 by Be Fletcher MD at [facility] Total Joint Component/I nsert Left: Hip [employer] [id number] 02/06/2027 723-00-36 F / / [id number] Insignia Hip Stem, Size 6, Nk Length 35mm, Stem Length 107mm, Std Offset Implanted:Qty : 1 on 05/12/2022 by Be Fletcher MD at [facility] Total Joint Component/I nsert Left: Hip MARI [id number] 01/19/2027 7212-6421 / / [id number] Imp Head Femoral Strk Biolox Delta Ceramic 36mm +2.5mm - [id number] Implanted:Qty : 1 on 05/12/2022 by Be Fletcher MD at [facility] Total Joint Component/I nsert Left: Hip [employer] [id number] 01/12/2027 6570-0-53 6 / [id number] Procedures Procedure Name Priority Date/Time Associated Diagnosis Comments GLUCOSE Routine 05/13/2022 6:57 AM LPN CARE MANAGER from Last 3 Months or Most Recently Relevant to Health Maintenance Results * (ABNORMAL) Glucose (05/13/2022 6:57 AM LPN CARE MANAGER) Glucose 133(H) 70 - 99 mg/dL 05/13/2022 7:25 AM LPN CARE MANAGER LABORATORY Blood STRUCTURE OF LEFT HAND / Unknown Venipuncture / Unknown 05/13/2022 6:57 AM LPN CARE MANAGER 05/13/2022 7:01 AM LPN CARE MANAGER Carlos Oleary MD LAB - BLOOD ORDERABL ES LABORATORY [facility] Acute Care Lab [address] Lab (1st floor, no room number) [place] [address] [phone] from Last 3 Months or Most Recently Relevant to Health Maintenance Advance Directives For more information, please contact: [phone] * Full Code (Latest Code Status on [...] patie nt/ legal decision maker Care Teams Milled Rubber Tender Relationship Specialty Start Date End Date No Ref-Primary, Physician PCP - General 07/19/22 Chalo Santo MD [address] [address] Assigned Sleep Provider 02/27/20
--- OUTSIDE RECORDS SUMMARY | 2023-11-09 10:02 | XMS_ITS | Encounter Summary ---
Author Organization [facility] Address [address] [place] [address]. [place] [address] Care Team Providers Care Tile Installer Name Role Phone [facility] Primary Care P jhonny Unavailable Chalo Santo MD Unavailable No Ref-Primary, Physician Primary Care Provider Encounter Details Date Type Department Care Team (Late st Contact Info) Description 10/25/2018 [facility] [address] [address] Rosa Echevarria MD [address] [place] [address] TE[place]ORA on CPAP (Primary Dx) [...] (pediatric) documented in this encounter Care Teams Tile Installer Relationship Specialty Start Date End Date [facility] CLOSED PCP - General 10/27/14 05/15/22 No Ref-Primary, Physician PCP - General 07/19/22 Chalo Santo MD [address] [place] [address] Assigned Sleep Provider 02/27/20 documented as of this encounter
--- OUTSIDE RECORDS SUMMARY | 2023-11-09 10:02 | XMS_ITS | Encounter Summary ---
Author Organization [facility] Address [address] [place] [address]. [place] [address] Care Team Providers Care Modeling Agency Manager Name Role Phone Chalo Santo MD Unavailable No Ref-Primary, Physician Primary Care Provider Encounter Details Date Type Department Care Team (Late st Contact Info) Description 03/02/2023 [facility] Medical Advice [address] [address] Earnestine Sharma Social History Tobacco Use Types Packs/Day Years [...] on filedocumented in this encounter Care Teams Modeling Agency Manager Relationship Specialty Start Date End Date No Ref-Primary, Physician PCP - General 07/19/22 Chalo Santo MD [address] [facility] [address] [place], [place] [address] Assigned Sleep Provider 02/27/20 documented as of this encounter
== END 2023-11-06 13:01 | disposition home or self-care (01) ==
LOC: NFLDREF 11-09 09:47
PROVIDERS: PCP Family Medicine; Referring Provider Family Medicine; Visit Provider Family Medicine
DX: G62.9 Polyneuropathy, unspecified (principal)
CPT/HCPCS: 80053

== ENCOUNTER 2024-01-02 08:27 | Outpatient (CLI) | payer MEDICARE, SELFPAY ==
--- OUTSIDE RECORDS SUMMARY | 2024-01-04 15:34 | XMS_ITS | Clinical Summary ---
Author Organization [facility] Address [place], [place] [address] Care Team Providers Care Mower Sharpener Name Role Phone Anjana Victor Primary Care Provider Unavail able Allergies No known active allergies Medications Medication Sig Dispensed Refills Start Date End Date Status Magnesium 30 mg tablet Take 20 mg by mouth once daily. 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 ECHO 04/2023, ZIO MAILED 09/03/BRADYCARDIA /PT states feeling not too bad./No unusual cardiac symptoms from what he is already experiencing./Increas ed heart rate with pounding. 1 or 2 irregular beats /Discuss swelling in lower legs and feet./) 10/12/2023 Travel from Last 3 Months Social History Tobacco [...] age 65+ 2014 COVID-19 vaccine series ( season) 3 Influenza for age 65+ 01/06/2024 BMI (ht and wt on same day) for age 18+ 10/11/2024 0 10/12/2023 Advance Directives * Full Code (Latest Code Status on File) Date Activated Date Inactivated Comments 01/26/2009 11:47 AM 01/26/2009 3:48 PM * Full Code Date Activated Date Inactivated Comments 01/26/2009 9:00 AM 01/26/2009 11:47 AM Care Teams Mower Sharpener Relationship Specialty Start Date End Date Anjana Victor PCP - General 01/22/09
--- OUTSIDE RECORDS SUMMARY | 2024-01-04 15:34 | XMS_ITS | Encounter Summary ---
Author Organization [facility] Address [address] [place] [address]. [place] [address] Care Team Providers Care Campaign Associate Name Role Phone [facility] Primary Care P jhonny Unavailable Chalo Snato MD Unavailable No Ref-Primary, Physician Primary Care Provider Encounter Details Date Type Department Care Team (Late st Contact Info) Description 10/25/2018 [facility] [address] [address] Rosa Echevarria MD [address] [place] [address] TEODORA on CPAP (Primary Dx) [...] (pediatric) documented in this encounter Care Teams Campaign Associate Relationship Specialty Start Date End Date [facility] CLOSED PCP - General 10/27/14 05/15/22 No Ref-Primary, Physician PCP - General 07/19/22 Chalo Santo MD [address] [place] [address] Assigned Sleep Provider 02/27/20 documented as of this encounter
--- OUTSIDE RECORDS SUMMARY | 2024-01-04 15:34 | XMS_ITS | Encounter Summary ---
Author Organization [facility] Address [address] [place] [address]. [place] [address] Care Team Providers Care Research Program Coordinator Name Role Phone [facility] Primary Care P jhonny Unavailable Chalo Santo MD Unavailable No Ref-Primary, Physician Primary Care Provider Encounter Details Date Type Department Care Team (Late st Contact Info) Description 10/08/2019 [facility] Medical Advice [address] [address] Melania Chang, [facility] Social History Tobacco Use Types Packs/Day [...] on filedocumented in this encounter Care Teams Research Program Coordinator Relationship Specialty Start Date End Date [facility] CLOSED PCP - General 10/27/14 05/15/22 No Ref-Primary, Physician PCP - General 07/19/22 Chalo Santo MD [address] [address] Assigned Sleep Provider 02/27/20 documented as of this encounter
--- OUTSIDE RECORDS SUMMARY | 2024-01-04 15:34 | XMS_ITS | Encounter Summary ---
Author Organization [facility] Address [address] [place] [address]. [place] [address] Care Team Providers Care Farmworker Grain Name Role Phone Chalo Santo MD Unavailable No Ref-Primary, Physician Primary Care Provider Encounter Details Date Type Department Care Team (Late st Contact Info) Description 03/02/2023 [facility] Medical Advice [address] [address] Earnestine Sharma Social History Tobacco [...] on filedocumented in this encounter Care Teams Farmworker Grain Relationship Specialty Start Date End Date No Ref-Primary, Physician PCP - General 07/19/22 Chalo Santo MD [address] [facility] [address] [place], [place] [address] Assigned Sleep Provider 02/27/20 documented as of this encounter
--- OUTSIDE RECORDS SUMMARY | 2024-01-04 15:34 | XMS_ITS | Clinical Summary ---
Author Organization [facility] Address [address] [place] [address]. [place] [address] Care Team Providers Care Clerical Clerk Name Role Phone Chalo Santo MD Unavailable [...] 1 spray topically daily Liquid Magnesium Body [place]. 1 spray on each thigh. Active Active [...] Comments Blood Pressure 125/55 05/13/2022 3:57 PM INTERIOR ASSEMBLIES INSTALLER Pulse 63 05/13/2022 3:57 PM INTERIOR ASSEMBLIES INSTALLER Temperature 36.8 ??C (98.3 ??F) 05/13/2022 3:57 PM CS T Respiratory Rate 16 05/13/2022 3:57 PM INTERIOR ASSEMBLIES INSTALLER Oxygen Saturation 97% 05/13/2022 3:57 PM INTERIOR ASSEMBLIES INSTALLER Inhaled Oxygen Concentration - - Weight 72.6 [...] IMMUNIZATION (1 of 2) 08/31/1999 RSV VACCINE (1 - 1-dose 60+ series) 2009 FALL [...] this topic Medical Devices Implanted Type Area Diploma Maker Device Identifier Shelf Expiration Date Model / Serial / Lot Imp Cable Zim Cerclage 1.8x25mm 2231-08-23 - [id number] Implanted:Qty : 1 on 05/12/2022 by Be Fletcher MD at [facility] Metallic Hardware/An chor Left: Hip [employer] [id number] 08/16/2031 00-2232-0 08-22 / [id number] Shell Actb 56mm Hip Ch Urbina Trdnt Ii Psl F Strl 74--56f - [id number] Implanted:Qty : 1 on 05/12/2022 by Be Fletcher MD at [facility] Total Joint Component/I nsert Left: Hip [employer] [id number] 03/02/2027 74--56 F / / [id number] Insert Blake 36mm 0d F Hip X3 Trdnt 723-00-36f - [id number] Implanted:Qty : 1 on 05/12/2022 by Be Fletcher MD at [facility] Total Joint Component/I nsert Left: Hip [employer] [id number] 02/06/2027 723-00-36 F / / [id number] Insignia Hip Stem, Size 6, Nk Length 35mm, Stem Length 107mm, Std Offset Implanted:Qty : 1 on 05/12/2022 by Be Fletcher MD at [facility] Total Joint Component/I nsert Left: Hip MARI [id number] 01/19/2027 2590-7972 / / [id number] Imp Head Femoral Strk Biolox Delta Ceramic 36mm +2.5mm - [id number] Implanted:Qty : 1 on 05/12/2022 by Be Fletcher MD at [facility] Total Joint Component/I nsert Left: Hip [employer] [id number] 01/12/2027 6570-0-53 6 [id number] Procedures Procedure Name Priority Date/Time Associated Diagnosis Comments GLUCOSE Routine 05/13/2022 6:57 AM INTERIOR ASSEMBLIES INSTALLER from Last 3 Months or Most Recently Relevant to Health Maintenance Results * (ABNORMAL) Glucose (05/13/2022 6:57 AM INTERIOR ASSEMBLIES INSTALLER) Glucose 133(H) 70 - 99 mg/dL 05/13/2022 7:25 AM INTERIOR ASSEMBLIES INSTALLER LABORATORY Blood STRUCTURE OF LEFT HAND / Unknown Venipuncture / Unknown 05/13/2022 6:57 AM INTERIOR ASSEMBLIES INSTALLER 05/13/2022 7:01 AM INTERIOR ASSEMBLIES INSTALLER Carlos Oleary MD LAB - BLOOD ORDERABL ES RH LABORATORY [facility] Acute Care Lab [address] [facility] Lab (1st floor, no room number) [place] [address], [facility] [place] [phone] from Last 3 Months or Most Recently Relevant to Health Maintenance Advance Directives For more information, please contact: [phone] * Full Code (Latest Code Status on [...] Comments Code status determined by: Discussion with nikkiee nt/ legal decision maker Care Teams Clerical Clerk Relationship Specialty Start Date End Date No Ref-Primary, Physician PCP - General 07/19/22 Chalo Santo MD [address] [address] Assigned Sleep Provider 02/27/20
--- OUTSIDE RECORDS SUMMARY | 2024-01-04 15:34 | XMS_ITS | Encounter Summary ---
Author Organization [facility] Address [address] [place] [address]. [place] [address] Care Team Providers Care Marine Diesel Mechanic Name Role Phone [facility] Primary Care P jhonny Unavailable Chalo Santo MD Unavailable No Ref-Primary, Physician Primary Care Provider Encounter Details Date Type Department Care Team (Late st Contact Info) Description 01/06/2021 [facility] Medical Advice [address] [address] Asif Bertrand MA Social History [...] on filedocumented in this encounter Care Teams Marine Diesel Mechanic Relationship Specialty Start Date End Date [facility] CLOSED PCP - General 10/27/14 05/15/22 No Ref-Primary, Physician PCP - General 07/19/22 Chalo Santo MD [address] [address] Assigned Sleep Provider 02/27/20 documented as of this encounter
--- OUTSIDE RECORDS SUMMARY | 2024-01-04 15:34 | XMS_ITS | Referral Summary ---
Author Organization [facility] Address [address] [place] [address]. [place] [address] Care Team Providers Care Linux Developer Name Role Phone Chalo Santo MD Unavailable [...] 1 spray topically daily Liquid Magnesium Body [place]. 1 spray on each thigh. Active Active [...] Comments Blood Pressure 125/55 05/13/2022 3:57 PM CAMERA PERSON Pulse 63 05/13/2022 3:57 PM CAMERA PERSON Temperature 36.8 ??C (98.3 ??F) 05/13/2022 3:57 PM CS T Respiratory Rate 16 05/13/2022 3:57 PM CAMERA PERSON Oxygen Saturation 97% 05/13/2022 3:57 PM CAMERA PERSON Inhaled Oxygen Concentration - - Weight 72.6 kg (160 lb) 02/28/2023 3:35 PM CDT Height 185.4 cm (6' 1) 02/28/2023 3:35 PM CDT Body Mass Index 21.11 02/28/2023 3:35 PM CDT Plan of Treatment Not on file Medical Devices Implanted Type Area Data Operations Leader Device Identifier Shelf Expiration Date Model / Serial / Lot Imp Cable Zim Cerclage 1.8x25mm 2231-08-23 - [id number] Implanted:Qty : 1 on 05/12/2022 by Be Fletcher MD at [facility] Metallic Hardware/An chor Left: Hip [employer] [id number] 08/16/20312-0 08-22 / [id number] Shell Actb 56mm Hip Ch Urbina Trdnt Ii Psl F Strl 74--56f - [id number] Implanted:Qty : 1 on 05/12/2022 by Be Fletcher MD at [facility] Total Joint Component/I nsert Left: Hip [employer] [id number] 03/02/2027 742-11-56 F / / [id number] Insert Blake 36mm 0d F Hip X3 Trdnt 723-00-36f - [id number] Implanted:Qty : 1 on 05/12/2022 by Be Fletcher MD at [facility] Total Joint Component/I nsert Left: Hip [employer] [id number] 02/06/2027 723-00-36 F / / [id number] Insignia Hip Stem, Size 6, Nk Length 35mm, Stem Length 107mm, Std Offset Implanted:Qty : 1 on 05/12/2022 by Be Fletcher MD at [facility] Total Joint Component/I nsert Left: Hip MARI [id number] 01/19/2027 4225-9657 / / [id number] Imp Head Femoral Strk Biolox Delta Ceramic 36mm +2.5mm - [id number] Implanted:Qty : 1 on 05/12/2022 by Be Fletcher MD at [facility] Total Joint Component/I nsert Left: Hip [employer] [id number] 01/12/2027 6570-0-53 6 / [id number] Procedures Procedure Name Priority Date/Time Associated Diagnosis Comments GLUCOSE Routine 05/13/2022 6:57 AM CAMERA PERSON from Last 3 Months or Most Recently Relevant to Health Maintenance Results * (ABNORMAL) Glucose (05/13/2022 6:57 AM CAMERA PERSON) Glucose 133(H) 70 - 99 mg/dL 05/13/2022 7:25 AM CAMERA PERSON LABORATORY Blood STRUCTURE OF LEFT HAND / Unknown Venipuncture / Unknown 05/13/2022 6:57 AM CAMERA PERSON 05/13/2022 7:01 AM CAMERA PERSON Carlos Oleary MD LAB - BLOOD ORDERABL ES LABORATORY [facility] Acute Care Lab [address] Lab (1st floor, no room number) [place] [address] [phone] from Last 3 Months or Most Recently Relevant to Health Maintenance Advance Directives For more information, please contact: [phone] * Full Code (Latest Code Status on [...] patie nt/ legal decision maker Care Teams Linux Developer Relationship Specialty Start Date End Date No Ref-Primary, Physician PCP - General 07/19/22 Chalo Santo MD [address] [address] Assigned Sleep Provider 02/27/20
--- OUTSIDE RECORDS SUMMARY | 2024-01-04 15:34 | XMS_ITS | Encounter Summary ---
Author Organization [facility] Address Counts include [facility] beds at the [facility] [place] [address] Care Team Providers Care Database Design Analyst Name Role Phone [facility] Primary Care P jhonny Unavailable Chalo Santo MD Unavailable No Ref-Primary, Physician Primary Care Provider Encounter Details Date Type Department Care Team (Late st Contact Info) Description 10/28/2021 [facility] Medical Advice [facility] [address] [phone] Marianna Irwin CMA Social History Tobacco Use [...] on filedocumented in this encounter Care Teams Database Design Analyst Relationship Specialty Start Date End Date [facility] CLOSED PCP - General 10/27/14 05/15/22 No Ref-Primary, Physician PCP - General 07/19/22 Chalo Santo MD [address] [place], [place] [address] Assigned Sleep Provider 02/27/20 documented as of this encounter
== END 2024-01-02 08:28 | disposition home or self-care (01) ==
LOC: NFLDREF 01-04 15:31
PROVIDERS: PCP Family Medicine; Referring Provider Family Medicine; Visit Provider Family Medicine
DX: G62.9 Polyneuropathy, unspecified (principal)
CPT/HCPCS: 80053

== ENCOUNTER 2024-02-01 09:05 | Outpatient (CLI) | payer MEDICARE, SELFPAY ==
--- OUTSIDE RECORDS SUMMARY | 2024-02-05 21:50 | XMS_ITS | Clinical Summary ---
Author Organization [facility] Address [place], [place] [address] Care Team Providers Care Office Clerk Assistant Name Role Phone Anjana Victor Primary Care [...] o f upper limb, including shoulder 01/26/2009 Social History Tobacco Use Types Packs/Day Years [...] for age 65+ 2014 COVID-19 vaccine series (2023- season) Influenza for age 65+ 01/06/2024 BMI (ht and wt on same day) for age 18+ 10/11/2024 0 10/12/2023 Advance Directives * Full Code (Latest Code Status on File) Date Activated Date Inactivated Comments 01/26/2009 11:47 AM 01/26/2009 3:48 PM * Full Code Date Activated Date Inactivated Comments 01/26/2009 9:00 AM 01/26/2009 11:47 AM Care Teams Office Clerk Assistant Relationship Specialty Start Date End Date Anjana Victor PCP - General 01/22/09
--- OUTSIDE RECORDS SUMMARY | 2024-02-05 21:50 | XMS_ITS | Encounter Summary ---
Author Organization [facility] Address [address] [place] [address]. [place] [address] Care Team Providers Care Marketing Services Coordinator Name Role Phone [facility] Primary Care P jhonny Unavailable Chalo Santo MD Unavailable No Ref-Primary, Physician Primary Care Provider Encounter Details Date Type Department Care Team (Late st Contact Info) Description 01/06/2021 [facility] Medical Advice [address] [address] Asif Bertrand MA Social History [...] on filedocumented in this encounter Care Teams Marketing Services Coordinator Relationship Specialty Start Date End Date [facility] CLOSED PCP - General 10/27/14 05/15/22 No Ref-Primary, Physician PCP - General 07/19/22 Chalo Santo MD [address] [address] Assigned Sleep Provider 02/27/20 documented as of this encounter
--- OUTSIDE RECORDS SUMMARY | 2024-02-05 21:50 | XMS_ITS | Encounter Summary ---
Author Organization [facility] Address [address] [place] [address]. [place] [address] Care Team Providers Care School Cleaner Name Role Phone Chalo Santo MD Unavailable No Ref-Primary, Physician Primary Care Provider Encounter Details Date Type Department Care Team (Late st Contact Info) Description 03/02/2023 [facility] [place] [address] [address] Earnestine Sharma Social History Tobacco [...] on filedocumented in this encounter Care Teams School Cleaner Relationship Specialty Start Date End Date No Ref-Primary, Physician PCP - General 07/19/22 Chalo Santo MD [address] [facility] [address] [place], [place] [address] Assigned Sleep Provider 02/27/20 documented as of this encounter
--- OUTSIDE RECORDS SUMMARY | 2024-02-05 21:50 | XMS_ITS | Clinical Summary ---
Author Organization [facility] Address [address] [place] [address]. [place] [address] Care Team Providers Care Supervisor Scrap Preparation Name Role Phone Chalo Santo MD Unavailable [...] 1 spray topically daily Liquid Magnesium Body [place]. 1 spray on each thigh. Active Active [...] Comments Blood Pressure 125/55 05/13/2022 3:57 PM WET PRIMER POWDER BLENDER Pulse 63 05/13/2022 3:57 PM WET PRIMER POWDER BLENDER Temperature 36.8 ??C (98.3 ??F) 05/13/2022 3:57 PM CS T Respiratory Rate 16 05/13/2022 3:57 PM WET PRIMER POWDER BLENDER Oxygen Saturation 97% 05/13/2022 3:57 PM WET PRIMER POWDER BLENDER Inhaled Oxygen Concentration - - Weight 72.6 [...] Years (1 of 1 - PCV) 2014 PHQ-2 (once per calendar year) 2023 02/28/2023, 10/04/2021 COVID-19 Vaccine ( - season) 2024 INFLUENZA VACCINE (#1) 2024 GLUCOSE 05/13/2025 05/13/2022, [...] this topic Medical Devices Implanted Type Area Mail Delivery Supervisor Device Identifier Shelf Expiration Date Model / Serial / Lot Imp Cable Zim Cerclage 1.8x25mm 2231-08-23 - [id number] Implanted:Qty : 1 on 05/12/2022 by Be Fletcher MD at [facility] Metallic Hardware/An chor Left: Hip [employer] [id number] 08/16/2031 00-2232-0 08-22 / [id number] Shell Actb 56mm Hip Ch Urbina Trdnt Ii Psl F Strl 74--56f - [id number] Implanted:Qty : 1 on 05/12/2022 by Be Fletcher MD at [facility] Total Joint Component/I nsert Left: Hip [employer] [id number] 03/02/2027 74--56 F / / [id number] Insert Blake 36mm 0d F Hip X3 Trdnt 723-00-36f - [id number] Implanted:Qty : 1 on 05/12/2022 by Be Fletcher MD at [facility] Total Joint Component/I nsert Left: Hip [employer] [id number] 02/06/2027 723-00-36 F / / [id number] Insignia Hip Stem, Size 6, Nk Length 35mm, Stem Length 107mm, Std Offset Implanted:Qty : 1 on 05/12/2022 by Be Fletcher MD at [facility] Total Joint Component/I nsert Left: Hip [employer]I [id number] 01/19/2027 9776-1591 / / [id number] Imp Head Femoral Strk Biolox Delta Ceramic 36mm +2.5mm - [id number] Implanted:Qty : 1 on 05/12/2022 by Be Fletcher MD at [facility] Total Joint Component/I nsert Left: Hip [employer] [id number] 01/12/2027 6570-0-53 6 [id number] Procedures Procedure Name Priority Date/Time Associated Diagnosis Comments GLUCOSE Routine 05/13/2022 6:57 AM WET PRIMER POWDER BLENDER from Last 3 Months or Most Recently Relevant to Health Maintenance Results * (ABNORMAL) Glucose (05/13/2022 6:57 AM WET PRIMER POWDER BLENDER) Glucose 133(H) 70 - 99 mg/dL 05/13/2022 7:25 AM WET PRIMER POWDER BLENDER LABORATORY Blood STRUCTURE OF LEFT HAND / Unknown Venipuncture / Unknown 05/13/2022 6:57 AM WET PRIMER POWDER BLENDER 05/13/2022 7:01 AM WET PRIMER POWDER BLENDER Carlos Oleary MD LAB - BLOOD ORDERABL ES LABORATORY [facility] [address] Lab (1st floor, no room number) [place] [address] [phone] from Last 3 Months or Most Recently Relevant to Health Maintenance Advance Directives For more information, please contact: [phone] * Full Code (Latest Code Status on [...] nikkiee nt/ legal decision maker Care Teams Supervisor Scrap Preparation Relationship Specialty Start Date End Date No Ref-Primary, Physician PCP - General 07/19/22 Chalo Santo MD [address] [place] [address] Assigned Sleep Provider 02/27/20
--- OUTSIDE RECORDS SUMMARY | 2024-02-05 21:50 | XMS_ITS | Encounter Summary ---
Author Organization [facility] Address [address] [place] [address]. [place] [address] Care Team Providers Care Design Technician Name Role Phone [facility] Primary Care P jhonny Unavailable Chalo Santo MD Unavailable No Ref-Primary, Physician Primary Care Provider Encounter Details Date Type Department Care Team (Late st Contact Info) Description 10/08/2019 [facility] Medical Advice [address] [address] Melania Chang, [facility] Social History Tobacco Use Types Packs/Day Years [...] on filedocumented in this encounter Care Teams Design Technician Relationship Specialty Start Date End Date [facility] CLOSED PCP - General 10/27/14 05/15/22 No Ref-Primary, Physician PCP - General 07/19/22 Chalo Santo MD [address] [address] Assigned Sleep Provider 02/27/20 documented as of this encounter
--- OUTSIDE RECORDS SUMMARY | 2024-02-05 21:50 | XMS_ITS | Encounter Summary ---
Author Organization [facility] Address [facility] [address] Care Team Providers Care Software Applications Designer Name Role Phone [facility] Primary Care P jhonny Unavailable Chalo Santo MD Unavailable No Ref-Primary, Physician Primary Care Provider Encounter Details Date Type Department Care Team (Late st Contact Info) Description 10/28/2021 [facility] [address] [id number] Marianna Irwin CMA Social History Tobacco Use [...] on filedocumented in this encounter Care Teams Software Applications Designer Relationship Specialty Start Date End Date [facility] CLOSED PCP - General 10/27/14 05/15/22 No Ref-Primary, Physician PCP - General 07/19/22 Chalo Santo MD [address] [place] [address] [place], [place] [id number] Assigned Sleep Provider 02/27/20 documented as of this encounter
--- OUTSIDE RECORDS SUMMARY | 2024-02-05 21:50 | XMS_ITS | Encounter Summary ---
Author Organization [facility] Address [address] [place] [address]. [place] [address] Care Team Providers Care Environmental Solutions Engineer Name Role Phone [facility] Primary Care P jhonny Unavailable Chalo Santo MD Unavailable No Ref-Primary, Physician Primary Care Provider Encounter Details Date Type Department Care Team (Late st Contact Info) Description 10/25/2018 [facility] [address] [address] Rosa Echevarria MD [address] [place] [address] [place] [address] TEODORA on CPAP (Primary Dx) [...] (pediatric) documented in this encounter Care Teams Environmental Solutions Engineer Relationship Specialty Start Date End Date [facility] CLOSED PCP - General 10/27/14 05/15/22 No Ref-Primary, Physician PCP - General 07/19/22 Chalo Santo MD [address] [place] [address] Assigned Sleep Provider 02/27/20 documented as of this encounter
--- OUTSIDE RECORDS SUMMARY | 2024-02-05 21:50 | XMS_ITS | Referral Summary ---
Author Organization [facility] Address [address] [place] [address]. [place] [address] Care Team Providers Care Brass Plater Name Role Phone Chalo Santo MD Unavailable [...] 1 spray topically daily Liquid Magnesium Body [place]. 1 spray on each thigh. Active Active [...] Comments Blood Pressure 125/55 05/13/2022 3:57 PM SHARK BIOLOGIST Pulse 63 05/13/2022 3:57 PM SHARK BIOLOGIST Temperature 36.8 ??C (98.3 ??F) 05/13/2022 3:57 PM CS T Respiratory Rate 16 05/13/2022 3:57 PM SHARK BIOLOGIST Oxygen Saturation 97% 05/13/2022 3:57 PM SHARK BIOLOGIST Inhaled Oxygen Concentration - - Weight 72.6 kg (160 lb) 02/28/2023 3:35 PM CDT Height 185.4 cm (6' 1) 02/28/2023 3:35 PM CDT Body Mass Index 21.11 02/28/2023 3:35 PM CDT Plan of Treatment Not on file Medical Devices Implanted Type Area Learning Officer Device Identifier Shelf Expiration Date Model / Serial / Lot Imp Cable Zim Cerclage 1.8x25mm 2231-08-23 - [id number] Implanted:Qty : 1 on 05/12/2022 by Be Fletcher MD at [facility] Metallic Hardware/An chor Left: Hip [employer] [id number] 08/16/20312-0 08-22 / [id number] Shell Actb 56mm Hip Ch Urbina Trdnt Ii Psl F Strl 74--56f - [id number] Implanted:Qty : 1 on 05/12/2022 by Be Fletcher MD at [facility] Total Joint Component/I nsert Left: Hip [employer] [id number] 03/02/2027 742-11-56 F / / [id number] Insert Blake 36mm 0d F Hip X3 Trdnt 723-00-36f - [id number] Implanted:Qty : 1 on 05/12/2022 by Be Fletcher MD at [facility] Total Joint Component/I nsert Left: Hip [employer] [id number] 02/06/2027 723-00-36 F / / [id number] Insignia Hip Stem, Size 6, Nk Length 35mm, Stem Length 107mm, Std Offset Implanted:Qty : 1 on 05/12/2022 by Be Fletcher MD at [facility] Total Joint Component/I nsert Left: Hip [employer]I [id number] 01/19/2027 8472-6974 / / [id number] Imp Head Femoral Strk Biolox Delta Ceramic 36mm +2.5mm - [id number] Implanted:Qty : 1 on 05/12/2022 by Be Fletcher MD at [facility] Total Joint Component/I nsert Left: Hip [employer] [id number] 01/12/2027 6570-0-53 6 / [id number] Procedures Procedure Name Priority Date/Time Associated Diagnosis Comments GLUCOSE Routine 05/13/2022 6:57 AM SHARK BIOLOGIST from Last 3 Months or Most Recently Relevant to Health Maintenance Results * (ABNORMAL) Glucose (05/13/2022 6:57 AM SHARK BIOLOGIST) Glucose 133(H) 70 - 99 mg/dL 05/13/2022 7:25 AM SHARK BIOLOGIST LABORATORY Blood STRUCTURE OF LEFT HAND / Unknown Venipuncture / Unknown 05/13/2022 6:57 AM SHARK BIOLOGIST 05/13/2022 7:01 AM SHARK BIOLOGIST Carlos Oleary MD LAB - BLOOD ORDERABL ES LABORATORY [facility] Acute Care Lab [address] Lab (1st floor, no room number) [place] [address], [facility] [phone] from Last 3 Months or Most Recently Relevant to Health Maintenance Advance Directives For more information, please contact: [phone] * Full Code (Latest Code Status on [...] patie nt/ legal decision maker Care Teams Brass Plater Relationship Specialty Start Date End Date No Ref-Primary, Physician PCP - General 07/19/22 Chalo Santo MD [address] [address] Assigned Sleep Provider 02/27/20
--- OUTSIDE RECORDS SUMMARY | 2024-02-05 21:50 | XMS_ITS | Continuity of Care Document ---
Author Organization [facility] Address [address] [address] [place] [address] Phone Care Team Providers Care Quick Service Technician Name Role Phone Yary Gabriel Unavailable Unavailable [...] Diagnoses Date Provider Providers Copied on Encounter [facility] SHARLA, [address] [address], [place], [place], [id number], [place] tel:[phone] [facility] No Information 7 Kathryn Pringle. [address] [address], [place], [place], [address] , [place]. [phone] Offic/outpt E&m Estab Mod-hi 2 [facility] SH[facility]LA, [address] [address], [place], [place], [address], [place] tel:[phone] [facility] GI Symptoms or Concerns (chief complaint) Alternating constipation and diarrheaWeight lossDietary counseling and surveillance 7 Kathryn Pringle. [address] [address], [place], [place], [address] , . tel:[phone] Referring Provider: Sandra GRACIA, [address] [place] [address], [address]. tel:[phone] Offic/outpt E&m Estab Mod-hi 2 [facility], [address] [address], [facility] [place], [address], [place] tel:[phone] [facility] GI Symptoms or Concerns (chief complaint) Gastroesophageal reflux disease without esophagitisDietary counseling and surveillanceElevate d blood-pressure reading, w/o diagnosis of htn 6 Bentley Cash . [address] [place] [address], [place], [place], [address] , [place]. [phone] Referring Provider: Rian Fernández MD, [address] [place] [address], [address]. tel:[phone] [facility] [place], [address] [address], [place], [place], [address], [place] tel:[phone] [facility] HeartburnHeartburn 6 Krysten Hyman. [address] [place] [address], [place], [place], [address] , [place]. tel:[phone] Referring Provider: Rian Fernández MD, [address] [place] [address], [address]. tel:[phone] Family History Family Member Type Diagnosis Age [...] Covered libertarian ID Authoriza tion(s) [employer] [place] [employer] [id number] Social History Type Description Quantity Date Captured [...] his neck. He underwent evaluation by an fish and wildlife warden and was found to have a vocal [...]
--- OUTSIDE RECORDS SUMMARY | 2024-02-05 21:50 | XMS_ITS | Data Portability ---
Author Organization [facility] Address [address] [facility] [address] [place] [address] Care Team Providers Care Shipping Inspector Name Role Phone DAISHA ANDREWS Primary Care Provider [phone] Assessment No assessment recorded. Plan of Treatment Reminders Order Date Submit Date Provider Last Modified By Organization Details Last Modified Time Details Appointments None recorded. Lab urinalysis , dipstick 2023 024 [facility], [address], [place], [address], 14:06:10 Referral None recorded. Procedures bladder scan (PROC) 2023 024 [facility], [address], [place], [address], 14:06:06 Surgeries None recorded. Imaging None recorded. Medication Orders None recorded. Patient TargetsNo targets recorded. Patient Instructions Encounter Date Encounter Id Patient Instructions Last Modified By Organization Details Last Modified Time 09/07/2023 [id number] will send urine for cirrus and call with report. [email or web address] Not available 09/07/2023 14:22:14 Reason for Referral None Reported. Results Created Date Observation Date Name Description Value Unit Range Abnormal Flag Note LastModifiedBy Organization Detail LastModifiedTime 09/07/19 24 09/07/2023 bladd er scan (PROC ) Volume (in mL) 0 Not Available [facility] [address], [place], [address], 09/07/2023 14:05:40 09/07/19 24 09/07/2023 urina lysis , dipst ick Color-Status Yellow Not Available [facility] [address], [place], [address], 09/07/2023 14:03:43 09/07/19 24 09/07/2023 urina lysis , dipst ick Clarity-Stat us Clear Not Available [facility] [address], [place], [address], 09/07/2023 14:03:43 09/07/19 24 09/07/2023 urina lysis , dipst ick Sp [place]-Stat us 1.015 Not Available [facility] [address], [place], [address], 09/07/2023 14:03:43 09/07/19 24 09/07/2023 urina lysis , dipst ick pH-Status 5.5 Not Available [facility] [address], [place], [address], 09/07/2023 14:03:43 09/07/19 24 09/07/2023 urina lysis , dipst ick Nitrates-Sta tus negati ve Not Available [facility] [address], [place], [address], 09/07/2023 14:03:43 09/07/19 24 09/07/2023 urina lysis , dipst ick Blood-Status Negati ve Not Available [facility] [address], [place], [address], 09/07/2023 14:03:43 09/07/19 24 09/07/2023 urina lysis , dipst ick Leuko-Status Negati ve Not Available [facility] [address], [place], [address], 09/07/2023 14:03:43 09/07/19 24 09/07/2023 urina lysis , dipst ick Specimen Type Voided Not Available [facility] [address], [place], [address], 09/07/2023 14:03:43 09/07/19 24 09/07/2023 urina lysis , dipst ick Performed by Anand mcfadden RN Not Available [facility] [address], [place], [address], 09/07/2023 14:03:43 Result Notes None recorded. 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 Procedure [...] Updated DateTime 09/07/2023 185.42 cm 21.6 kg/m2 62799.15 g Bessie Reyes [facility] 09/07/2023 14:01:57 Social History Question Answer Notes LastModified by Organizat ion Details LastModified Time Tobacco Smoking Status Former Smoker Bessie vigil [facility] 09/07/2023 14:03:31 What Is Your Level Of Alcohol Consumption? None Information not available 09/07/2023 When Did You Quit Smoking? 16+yearssinc elastcigaret te [email or web address] Information not available 09/07/2023 What Was The Date Of Your Most Recent Tobacco Screening? 09/07/2023 Information not available 09/07/2023 Has Tobacco Cessation Counseling Been Provided? No [email or web address] Information not available 09/07/2023 Do You Or Have You Ever Used Any Other Forms Of Tobacco Or Nicotine? No [email or web address] Information not available 09/07/2023 Sex: Unknown Functional Status None recorded. Mental Status None recorded. Family History Relationship Description Onset Age of this Age Resolved Age Notes LastModified by Organization Details LastModified Time Unspecified Relation Family history of malignant neoplasm of prostate Not available 2023 14:03:10 Medical History No medical history recorded. Past Encounters Encounter ID Performer Location Encounter Start Date Encounter Closed Date Diagnosis/Indication Diagnosis SNOMED-CT Code Diagnosis ICD10 Code [id number] Constantino Cheung MD [facility] [address] [place] [address] 09/07/2023 13:45:46 09/10/2023 13:39:13 Dysuria 43122704 R30.0 Health Concerns Section Related Observation LastModified by Organization Detai ls LastModified Time None Recorded Concern Status LastModified by Organization Details LastModified Time None Recorded Advance Directives Directive None Recorded Payers Encounter Date Sequence Insurance Name Policy Number Policy Acosta Covered Member ID Acosta Member ID Guarantor Name 09/07/2023 1 [facility] [id number] Geremias Dyson [id number] Geremias Dyson Notes Date Note Type Note [...] paternal cousin had CaP. Constantino Cheung MD [address] [facility],[address], [place], [address], [facility] 09/07/2023 14:23:15
== END 2024-02-01 09:06 | disposition home or self-care (01) ==
LOC: NFLDREF 02-05 21:48
PROVIDERS: PCP Family Medicine; Referring Provider Family Medicine; Visit Provider Family Medicine
DX: E78.5 Hyperlipidemia, unspecified (principal); E55.9 Vitamin D deficiency, unspecified; Z12.5 Encounter for screening for malignant neoplasm of prostate
CPT/HCPCS: 80053; 80061; 82306; G0103

== ENCOUNTER 2024-03-04 11:03 | Outpatient (CLI) | payer MEDICARE, SELFPAY ==
--- OUTSIDE RECORDS SUMMARY | 2024-03-05 12:05 | XMS_ITS | Clinical Summary ---
Author Organization [facility] Address [place], [place] [address] Care Team Providers Care Vegetable Buncher Name Role Phone Anjana Victor Primary Care [...] 9:00 AM 01/26/2009 11:47 AM Care Teams Vegetable Buncher Relationship Specialty Start Date End Date Anjana Victor PCP - General 01/22/09
--- OUTSIDE RECORDS SUMMARY | 2024-03-05 12:05 | XMS_ITS | Encounter Summary ---
Author Organization [place] Address [address] [place] [address]. [place] [address] Care Team Providers Care Watershed Manager Name Role Phone Chalo Santo MD Unavailable No Ref-Primary, Physician Primary Care Provider Reason for Visit * Reason Comments CPAP Follow Up Needs new machine. 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 Gender Identity Not on file Sexual Orientation Not on file documented as of this encounter Last Filed Vital Signs Vital Sign Reading Time Taken Comments Blood Pressure 112/71 02/27/2024 9:51 AM CDT Pulse 57 02/27/2024 9:51 AM CDT Temperature - - Respiratory Rate - - Oxygen Saturation 99% 02/27/2024 9:51 AM CDT Inhaled Oxygen Concentration - - Weight 74.3 kg (163 lb 12.8 oz) 02/27/2024 9:51 AM CDT Height - - Body Mass Index 21.61 02/28/2023 3:35 PM CDT documented in this encounter Patient Instructions * Patient Instructions* Oswald Christensen MD - 02/27/2024 10:00 AM CDT MY INFORMATION ON SLEEP APNEA- Geremias Dyson DOCTOR : Oswald Christensen MD SLEEP CENTER : MY CONTACT NUMBER: [facility] For general sleep health questions: http://sleepeducation.org For tips about PAP and COVID-19: https://www.thoracic.org/patients/patient-resources/resources/hzdcx-63-inn-home- pap-therapy.pdf For general info about COVID-19 including vaccines: https://Kraftwurxthfairview.org/covid19 Continue PAP therapy every night, for all hours that you are sleeping (including naps.) As always, try to get at least 8 hours of sleep or more each day, keep a regular sleep schedule, and avoid sleep deprivation. Avoid alcohol. Reasons that you might need a change to your pressure therapy would be weight gain or loss, waking having inadvertently removed your PAP overnight, having previously felt refreshed by sleep with CPAPuse and now waking un-refreshed, and return of daytime sleepiness. Also, the development of new medical problems (such as heart failure, stroke, medications such as narcotics) can sometimes affect breathing at night and change your PAP therapy needs. Please bring PAP with you if you are hospitalized. If anticipating surgery be sure to discuss with your surgeon that you have sleep apnea and use PAP therapy. Maintain your equipment as recommended which includes routine cleaning and replacement of supplies. Call DME for any questions regarding supplies or maintenance. [place] [facility], [facility] Do not drive on engage in potentially dangerous activities if feeling sleepy. Please follow up in sleep clinic again in 3 months. Tips for your PAP use- Mask fitting tips Mask fitting exercise: To improve your mask seal and your mobility at night, put mask on and secure in place. Lie down in bed with full pressure and roll to one side, adjust headgear while in that position to eliminate anyleaks. Repeat process rolling to other side. The mask seal does not have to be perfect: CPAP machines are designed to make up for small leaks. However, you will not tolerate leaks blowingin your eyes so you will need to adjust. Any leak should only be near or at the bottom of the mask.We expect your mask to leak slightly at night. Do not over-tighten the headgear straps, tighter IS NOT better, we expect minimal leak. First try re-positioning the mask or headgear before tightening the headgear straps. Mask leaks are expected due to changing sleeping positions. Try pulling the mask away from your skin allowing the cushion to re-inflate will minimize the leak. If you struggle for a good fit, try turning the CPAP off and then readjust the mask by pulling it away from your face and then turning backon the CPAP. Humidifier tips Humidifiers can be adjusted to increase or decrease the amount of moisture according to your comfort level. You may need to adjust this frequently at first, but then might only change it with seasonal weather changes. Try INCREASING the humidity if: You experience a dry, irritated nasal passage or throat. You have a runny, drippy nose or sneezing fits after using CPAP. You experience nasal congestion during or after CPAP use. Try DECREASING the humidity if: You have excessive condensation or ???rain out?? in the tubing or mask. Otherwise keep the tubing warm during the night by running it underneath the blankets or pillow. Clinic visit after initial PAP set-up Bring your equipment with you to your 5-8 week follow up clinic visit. We will be extracting your data from the machine if not available from the cloud based Medication Review. Travel Always take your equipment with you when you travel. If you fly with your equipment bring it on with you as a carry on. Medical equipment does not count as a carry on. If you travel international the machines take 110-240v. The only adapter needed is the adapter thatwill fit into the receptacle (outlet). You may also want to bring an extension cord as many hotel rooms have limited outlets at the bedside. Do not travel with water in your humidifier chamber. Cleaning and Maintenance Guidelines Equipment Frequency Cleaning Method Mask First Day Daily Weekly Soak mask in hot soapy water for 30 minutes, rinse and air dry. Wipe nasal cushion with a hot soapy (Ivory, baby shampoo) cloth and rinse. Baby wipes may also be used. Do not use anti-bacterial soaps,Kristi?? liquid soap, rubbing alcohol, bleach or ammonia. Wash frame in hot soapy water (Ivory, baby shampoo) rinse and let air dry Headgear Biweekly Wash in hot soapy water, rinse and air dry Reusable Page Filter Weekly Wash in hot soapy water, rinse, put in towel squeeze moisture out, let air dry Disposable White Filter Check Weekly Replace when brown or page in color; at least every 2 to 3 months Humidifier Chamber Daily Weekly Empty distilled water from humidifier and let air dry Hand wash in hot soapy water, rinse and air dry Tubing Weekly Wash in hot soapy water, rinse and let air dry Mask, Tubing and Humidifier Chamber As needed Disinfect: Soak in 1 part distilled white vinegar to 3 parts hot water for 30 minutes, rinse well and air dry Not the material headgear MASK AND SUPPLY REORDERING and EQUIPMENT NEEDS through your DME and per your insurance Reminder: Most insurance companies will allow for a new mask, headgear, tubing, and reusable page filter every six months. Disposable white ultra-fine filters are covered monthly. HOME AND SAFETY INSTRUCTIONS Do not use frayed or cracked electrical cords, multi plug adaptors, or switched receptacles Do not immerse electrical equipment into water Assure that electrical cords do not become a tripping hazard documented in this encounter Progress Notes * Oswald Christensen MD - 02/27/2024 10:00 AM CDT Images from the original note were not included. [facility] Sleep clinic follow up visit note Date on this visit: 02/27/2024 Primary Physician: No Ref-Primary, Physician History of present illness: Geremias Dyson is a 73 year old male patient with lumbar DDD w/ peripheral neuropathy, COPD, and TEODORA who presents for CPAP Follow Up (Needs new machine. ) He has severe sleep apnea with an AHI of 66, managed with CPAP. Do you use a CPAP Machine at home: (Patient-Rptd) Yes DME: [facility] Overall, on a scale of 0-10 how would you rate your CPAP (0 poor, 10 great): (Patient-Rptd) 10 What type of mask do you use: (Patient-Rptd) Nasal Mask Is your mask comfortable: (Patient-Rptd) Yes If not, why: Is your mask leaking: (Patient-Rptd) No If yes, where do you feel it: How many night per week does the mask leak (0-7): Do you notice snoring with mask on: (Patient-Rptd) No Do you notice gasping arousals with mask on: (Patient-Rptd) No Are you having significant oral or nasal dryness: (Patient-Rptd) No Is the pressure setting comfortable: (Patient-Rptd) Yes If not, why: What is your typical bedtime: (Patient-Rptd) 10:00 pm How long does it take you to go to sleep on PAP therapy: (Patient-Rptd) Few to several minutes What time do you typically get out of bed for the day: (Patient-Rptd) 7:00 am How many hours on average per night are you using PAP therapy: (Patient-Rptd) 9 How many hours are you sleeping per night: (Patient-Rptd) 7-8 Do you feel well rested in the morning: (Patient-Rptd) Yes ResMed Auto-PAP 5.0 - 15.0 cmH2O 30 day usage data: 100% of days with > 4 hours of use. 0/30 days with no use. Average use 532 minutes per day. 95%ile Leak 6.5 L/min. CPAP 95% pressure 9.7 cm. AHI 3.46 events per hour. Assessment and Plan: Problem List Items Addressed This Visit Severe obstructive sleep apnea on CPAP - Primary Geremias Dyson has Severe Sleep apnea. He is tolerating PAP well and reports adequate compliance withPAP therapy. Daytime symptoms are improved and reports positive benefits with PAP use. TEODORA is adequately controlled with Auto CPAP at the current settings per compliance DL. Patient reports that CPAP displaying motor life exceeded. Prescription provided for renewal of PAP device due to motor life exceeded displaying on patient's machine and renewal of supplies. Recommended him/her to continue using the CPAP regularly during sleep and instructed to get the supplies for the PAP replaced regularly. Patient instructed to remember to bring PAP with him/her if hospitalized and if anticipating procedure that requires sedation/surgery to be sure to discuss with the provider/surgeon that he/she has sleep apnea and uses PAP therapy. Relevant Orders Comprehensive DME (Completed) SCALES: EPWORTH SLEEPINESS SCALE 02/26/2024 7:43 PM Torreon Sleepiness Scale (??Eduard Key [id number]
ESS - [place] - Final version - Mar 13 - [facility] Research [place].) Sitting and reading Slight chance of dozing Watching TV Would never doze Sitting, inactive in a public place (e.g. a theatre or a meeting) Would never doze As a passenger in a car for an hour without a break Would never doze Lying down to rest in the afternoon when circumstances permit Would never doze Sitting and talking to someone Would never doze Sitting quietly after a lunch without alcohol Slight chance of dozing In a car, while stopped for a few minutes in traffic Would never doze Torreon Score (MC) 2 Torreon Score (Sleep) 2 INSOMNIA SEVERITY INDEX (KATHI) ?? 02/26/2024 7:35 PM Insomnia Severity Index (KATHI) Difficulty falling asleep 0 Difficulty staying asleep 1 Problems waking up too early 1 How SATISFIED/DISSATISFIED are you with your CURRENT sleep pattern? 1 How NOTICEABLE to others do you think your sleep problem is in terms of impairing the quality of your life? 0 How WORRIED/DISTRESSED are you about your current sleep problem? 0 To what extent do you consider your sleep problem to INTERFERE with your daily functioning (e.g. daytime fatigue, mood, ability to function at work/daily chores, concentration, memory, mood, etc.) CURRENTLY? 0 KATHI Total Score 3 Patient-reported Guidelines for Scoring/Interpretation: Total score categories: 0-7 = No clinically significant insomnia 8-14 = Subthreshold insomnia 15-21 = Clinical insomnia (moderate severity) 22-28 = Clinical insomnia (severe) Used via courtesy of www.Sprinkleth.DotSpots.gov with permission from Josef Keller PhD., [employer]?? [employer] Allergies: No Known Allergies Medications: Current Outpatient Medications Medication Sig Dispense Refill Digestive Enzymes (BETAINE HCL PO) Take 2-4 capsules by mouth daily Per pt, takes with 4 to 8 ounces of protein MAGNESIUM PO Take 0.25-0.5 teaspoonful by mouth daily Natural Vitality Calm Magnesium Powder. Pt alternates between 1/4 and 1/2 teaspoon of powder, every other day; mixes with 16 oz of warm water. Nutritional Supplements (ADULT NUTRITIONAL SUPPLEMENT + OR) Vitamin D3 + K2 liquid. Pt uses 16 drops daily. UNABLE TO FIND Apply 1 spray topically daily Liquid Magnesium Body [place]. 1 spray on each thigh. Problem List: Patient Active Problem List Diagnosis Date Noted Hip fracture (H) 05/11/2022 Priority: Medium Severe obstructive sleep apnea on CPAP 10/14/2019 Priority: Medium Past Medical/Surgical History: Past Medical History: Diagnosis Date Anxiety Diabetes (H) Past Surgical History: Procedure Laterality Date ARTHROPLASTY HIP ANTERIOR Left 05/12/2022 Procedure: Direct anterior approach left total hip arthroplasty; Surgeon: Be Fletcher MD; Location: OR Social History: Social History Socioeconomic History Marital status: Spouse name: Not on file Number of children: Not on file Years of education: Not on file Highest education level: Not on file Occupational History Not on file Tobacco Use Smoking status: Never Smokeless tobacco: Never Substance and Sexual Activity Alcohol use: Yes Drug use: No Sexual activity: Never Other Topics Concern Parent/sibling w/ CABG, AL or angioplasty before 65F 55M? Not Asked Social History Narrative Not on file Social Drivers of Health Financial Resource Strain: Not on file Food Insecurity: Not on file Transportation Needs: Not on file Physical Activity: Not on file Stress: Not on file Social Connections: Unknown (03/23/2023) Received from [facility] Social Connections Frequency of Communication with Friends and Family: Not on file Interpersonal Safety: Not on file Housing Stability: Not on file Family History: No family history on file. Review of systems A complete review of systems reviewed by me is negative with the exeption of what has been mentioned in the history of present illness. Physical Examination: Vitals: BP 112/71 Pulse 57 Wt 74.3 kg (163 lb 12.8 oz) SpO2 99% BMI 21.61 kg/m?? BMI= Body mass index is 21.61 kg/m??. GENERAL: alert, no distress, and elderly EYES: Eyes grossly normal to inspection. No discharge or erythema, or obvious scleral/conjunctival abnormalities. RESP: No audible wheeze, cough, or visible cyanosis. SKIN: Visible skin clear. No significant rash, abnormal pigmentation or lesions. NEURO: Cranial nerves grossly intact. Mentation and speech appropriate for age. PSYCH: Appropriate affect, tone, and pace of words Other tests/labs: I have reviewed the labs and personally reviewed the imaging below and made my comment in the assessment and plan. Patient was strongly advised to avoid driving, operating any heavy machinery or other hazardous situations while drowsy or sleepy. Patient was counseled on the importance of driving while alert, to pull through hooker if drowsy, or nap before getting into the vehicle if sleepy. Plan is for Geremias Dyson to follow up in about 3 month(s). The above note was dictated using voice recognition software. Although reviewed after completion, some word and grammatical error may remain . Please contact the author for any clarifications. Total time spent reviewing medical records, history and physical examination, review of previous testing and interpretation as well as documentation on this date, 02/27/24: 10 minutes Oswald Christensen MD on 02/27/24 [facility] Floor 1, [address] [place] [address] Appointments: [phone] CC: Oswald Christensen documented in this encounter Nursing Notes * Kaiden Wagner, RN - 02/27/2024 10:00 AM CDT Chief Complaint Patient presents with CPAP Follow Up Needs new machine. Initial BP 112/71 Pulse 57 Wt 74.3 kg (163 lb 12.8 oz) SpO2 99% BMI 21.61 kg/m?? Estimated body mass index is 21.61 kg/m?? as calculated from the following: Height as of 02/28/23: 1.854 m (6' 1). Weight as of this encounter: 74.3 kg (163 lb 12.8 oz). Medication Reconciliation: complete ESS: 2 DME: [facility] documented in this encounter Miscellaneous Notes * Assessment & Plan Note - Oswald Christensen MD - 02/27/2024 9:59 AM CDT Associated Problem(s): Severe obstructive sleep apnea on CPAP Geremias Dyson has Severe Sleep apnea. He is tolerating PAP well and reports adequate compliance withPAP therapy. Daytime symptoms are improved and reports positive benefits with PAP use. TEODORA is adequately controlled with Auto CPAP at the current settings per compliance DL. Patient reports that CPAP displaying motor life exceeded. Prescription provided for renewal of PAP device due to motor life exceeded displaying on patient's machine and renewal of supplies. Recommended him/her to continue using the CPAP regularly during sleep and instructed to get the supplies for the PAP replaced regularly. Patient instructed to remember to bring PAP with him/her if hospitalized and if anticipating procedure that requires sedation/surgery to be sure to discuss with the provider/surgeon that he/she has sleep apnea and uses PAP therapy. documented in this encounter Plan of Treatment Upcoming Encounters Date Type Department Care Team (Late st Contact Info) Description 06/05/2024 12:00 PM INTERIOR DECORATOR PAINTING Office Visit [address] [address] Aurea Heredia PA-C [address] [place] [address] [address] [place], [place] [address] documented as of this encounter Visit Diagnoses Diagnosis Severe obstructive sleep apnea on CPAP- Primary Obstructive sleep apnea (adult) (pediatric) documented in this encounter Care Teams Watershed Manager Relationship Specialty Start Date End Date No Ref-Primary, Physician PCP - General 07/19/22 Chalo Santo MD [address] [facility] [address] [address] Assigned Sleep Provider 02/27/20 documented as of this encounter
--- OUTSIDE RECORDS SUMMARY | 2024-03-05 12:05 | XMS_ITS | Encounter Summary ---
Author Organization [place] Address [address] [place] [address]. 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 Pended. VALDEZ 02/28/23. documented in this encounter Plan of Treatment Upcoming Encounters Date Type Department Care Team (Late st Contact Info) Description 06/05/2024 12:00 PM STUDIO TECHNICIAN Office Visit [facility] [place] [address] [facility] [address] [place] [phone] Aurea Heredia PA-C [address] [facility] [address] [place] [address] documented as of this encounter Visit Diagnoses Diagnosis TEODORA (obstructive sleep apnea)- Primary Obstructive sleep apnea (adult) (pediatric) documented in this encounter Care Teams Net Finisher Relationship Specialty Start Date End Date No Ref-Primary, Physician PCP - General 07/19/22 Chalo Santo MD [address] [place] [address] [place], [place] [id number] Assigned Sleep Provider 02/27/20 documented as of this encounter
--- OUTSIDE RECORDS SUMMARY | 2024-03-05 12:05 | XMS_ITS | Encounter Summary ---
Author Organization [place] Address [address] [place] [address]. 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 Gender Identity Not on file Sexual Orientation Not on file documented as of this encounter Plan of Treatment Upcoming Encounters Date Type Department Care Team (Late st Contact Info) Description 06/05/2024 12:00 PM MANAGING MEMBER Office Visit [facility] [place] [address] [facility] [address] [place] [phone] Aurea Heredia PA-C [address] [facility] [address] [place] [phone] documented as of this encounter Visit Diagnoses Not on filedocumented in this encounter Care Teams Geothermal Operations Engineer Relationship Specialty Start Date End Date No Ref-Primary, Physician PCP - General 07/19/22 Chalo Santo MD [address] [address] Assigned Sleep Provider 02/27/20 documented as of this encounter
--- OUTSIDE RECORDS SUMMARY | 2024-03-05 12:05 | XMS_ITS | Encounter Summary ---
Author Organization [place] Address [address] [place] [address]. 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 Gender Identity Not on file Sexual Orientation Not on file documented as of this encounter Plan of Treatment Upcoming Encounters Date Type Department Care Team (Late st Contact Info) Description 06/05/2024 12:00 PM CARDIOGRAPHER Office Visit [facility] [place] [address] [facility] [address] [place] [phone] Aurea Heredia PA-C [address] [facility] [address] [place] [phone] documented as of this encounter Visit Diagnoses Not on filedocumented in this encounter Care Teams Public Works Laborer Relationship Specialty Start Date End Date No Ref-Primary, Physician PCP - General 07/19/22 Chalo Santo MD [address] [address] Assigned Sleep Provider 02/27/20 documented as of this encounter
--- OUTSIDE RECORDS SUMMARY | 2024-03-05 12:05 | XMS_ITS | Clinical Summary ---
Author Organization [place] Address [address] [place] [address]. [place] [address] Care Team Providers Care Moth Exterminator Name Role Phone Chalo Santo MD Unavailable No Ref-Primary, Physician Primary Care Provider Allergies No known active allergies Medications Digestive Enzymes (BETAINE HCL PO) Take 2-4 [...] 1 spray topically daily Liquid Magnesium Body [place]. 1 spray on each thigh. Active Active Problems Problem Noted Date Diagnosed Date Hip fracture 05/11/2022 Severe obstructive sleep apnea on CPAP 0 Assessment & Plan (02/27/2024 2:43 PM CDT): Geremias Dyson has Severe Sleep apnea. He is tolerating PAP well and reports adequate compliance with PAP therapy. Daytime symptoms are improved and reports [...] has sleep apnea and uses PAP therapy. Encounters Date Type Department Care Team Description 02/27/2024 10:00 AM CDT Office Visit [address] [address] Oswald Christensen MD Severe obstructive sleep apnea on CPAP (Primary Dx) 02/27/2024 Travel 02/26/2024 Travel 02/22/2024 MyC Medical Advice [address] [address] Chalo Santo MD TEODORA (obstructive sleep apnea) (Primary Dx) from Last 3 Months Social History Tobacco [...] on file Legal Sex Male 3:21 AM NON LICENSED OPERATOR Gender Identity Not on file Sexual Orientation Not on file Last Filed Vital Signs Vital Sign Reading Time Taken Comments Blood Pressure 112/71 02/27/2024 9:51 AM CDT Pulse 57 02/27/2024 9:51 AM CDT Temperature 36.8 ??C (98.3 ??F) 05/13/2022 3:57 PM CS T Respiratory Rate 16 05/13/2022 3:57 PM NON LICENSED OPERATOR Oxygen Saturation 99% 02/27/2024 9:51 AM CDT Inhaled Oxygen Concentration - - Weight 74.3 kg (163 lb 12.8 oz) 02/27/2024 9:51 AM CDT Height 185.4 cm (6' 1) 02/28/2023 3:35 PM CDT Body Mass Index 21.61 02/28/2023 3:35 PM CDT Plan of Treatment Upcoming Encounters Date Type Department Care Team (Late Contact Info) Description 06/05/2024 12:00 PM NON LICENSED OPERATOR Office Visit [facility] [place] [address] [facility] [address] [place] [address] Aurea Heredia PA-C [address] [place] [id number] Health Maintenance Due Date Last Done Comments ADVANCE CARE PLANNING 1950 ANNUAL REVIEW OF HM ORDERS [address] CT COLONOGRAPHY 1950 FIT 1950 FLEX SIG 1950 sDNA (Cologuard) 1950 COLONOSCOPY 08/31/1959 COLORECTAL CANCER SCREENING 08/31/1959 HEPATITIS C SCREENING 08/31/1967 DTAP/TDAP/TD IMMUNIZATION (1 - Tdap) 1974 LIPID 1989 ZOSTER IMMUNIZATION (1 of 2) 08/31/1999 FALL RISK ASSESSMENT 2014 MEDICARE ANNUAL WELLNESS VISIT 2014 Pneumococcal Vaccine: 65+ Years (1 of 1 - PCV) 2014 PHQ-2 (once per calendar year) 2023 02/28/2023, 10/04/2021 COVID-19 Vaccine (1 - 2023- season) 2024 INFLUENZA VACCINE (#1) 2024 RSV VACCINE (1 - 1-dose 75+ series) 2024 GLUCOSE 05/13/2025 05/13/2022, 10/2022, 05/12/2022, Additional history exists HPV IMMUNIZATION Aged Out No longer e ligible based on patient's age to complete this topic MENINGITIS IMMUNIZATION Aged Out No l onger eligible based on patient's age to complete this topic RSV MONOCLONAL ANTIBODY Aged Out No l onger eligible based on patient's age to complete this topic Medical Devices Implanted Type Area Ice Cream Man Device Identifier Shelf Expiration Date Model / Serial / Lot Imp Cable Zim Cerclage 1.8x25mm 2231-08-23 - [id number] Implanted:Qty : 1 on 05/12/2022 by Be Fletcher MD at [facility] Metallic Hardware/An chor Left: Hip [employer] [id number] 08/16/2031 00-2232-0 -18 / / [id number] Shell Actb 56mm Hip Ch Urbina Trdnt Ii Psl F Strl 74--56f - [id number] Implanted:Qty : 1 on 05/12/2022 by Be Fletcher MD at [facility] Total Joint Component/I nsert Left: Hip MARI [employer] [id number] 03/02/2027 742-11-56 F / / [id number] Insert Blake 36mm 0d F Hip X3 Trdnt 72-00-36f - [id number] Implanted:Qty : 1 on 05/12/2022 by Be Fletcher MD at [facility] Total Joint Component/I nsert Left: Hip MARI [employer] [id number] 02/06/2027 723--36 F / / [id number] Insignia Hip Stem, Size 6, Nk Length 35mm, Stem Length 107mm, Std Offset Implanted:Qty : 1 on 05/12/2022 by Be Fletcher MD at [facility] Total Joint Component/I nsert Left: Hip MARI [id number] 01/19/2027 2553-0679 / / [id number] Imp Head Femoral Strk Biolox Delta Ceramic 36mm +2.5mm - [id number] Implanted:Qty : 1 on 05/12/2022 by Be Fletcher MD at [facility] Total Joint Component/I nsert Left: Hip MARI [employer] [id number] 01/12/2027 6570-0-53 6 / [id number] Procedures Procedure Name Priority Date/Time Associated Diagnosis Comments GLUCOSE Routine 05/13/2022 6:57 AM NON LICENSED OPERATOR from Last 3 Months or Most Recently Relevant to Health Maintenance Results * (ABNORMAL) Glucose (05/13/2022 6:57 AM NON LICENSED OPERATOR) Glucose 133(H) 70 - 99 mg/dL 05/13/2022 7:25 AM NON LICENSED OPERATOR [facility] Blood STRUCTURE OF LEFT HAND / Unknown Venipuncture / Unknown 05/13/2022 6:57 AM NON LICENSED OPERATOR 05/13/2022 7:01 AM NON LICENSED OPERATOR us Carlos Oleary MD LAB - BLOOD ORDERABLES Final Res ult [facility] LABORAT[facility] [address] Lab (1st floor, no room number) [place] [address], [facility] [phone] from Last 3 Months or Most Recently Relevant to Health Maintenance Insurance [employer] MEDICARE ADVANTAGE [facility] MEDICARE ADVANTAGE Advance Directives For more information, please contact: [phone] * Full Code (Latest Code Status on [...] patie nt/ legal decision maker Care Teams Moth Exterminator Relationship Specialty Start Date End Date No Ref-Primary, Physician PCP - General 07/19/22 Chalo Santo MD [address] [address] Assigned Sleep Provider 02/27/20
--- OUTSIDE RECORDS SUMMARY | 2024-03-05 12:05 | XMS_ITS | Referral Summary ---
Author Organization [facility] Address [address] [place] [address]. [place] [address] Care Team Providers Care Allergist/Pediatric Pulmonologist Name Role Phone Chalo Santo MD Unavailable No Ref-Primary, Physician Primary Care Provider Encounters Date Type Department Care Team Description 02/27/2024 Travel 02/27/2024 10:00 AM CDT Office Visit [facility] Sleep [address] [address] Oswald Christensen MD Severe obstructive sleep apnea on CPAP (Primary Dx) 02/26/2024 Travel 02/22/2024 MyC Medical Advice [facility] Sleep [facility] [address] [place] [address] Chalo Santo MD TEODORA (obstructive sleep apnea) (Primary Dx) from Last 3 Months Allergies No known active allergies Medications Digestive [...] 1 spray topically daily Liquid Magnesium Body [place]. 1 spray on each thigh. Active Active [...] has sleep apnea and uses PAP therapy. 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 Gender Identity Not on file Sexual Orientation Not on file Last Filed Vital Signs Vital Sign Reading Time Taken Comments Blood Pressure 112/71 02/27/2024 9:51 AM CDT Pulse 57 02/27/2024 9:51 AM CDT Temperature 36.8 ??C (98.3 ??F) 05/13/2022 3:57 PM CS T Respiratory Rate 16 05/13/2022 3:57 PM MERCHANDISE COLLECTOR Oxygen Saturation 99% 02/27/2024 9:51 AM CDT Inhaled Oxygen Concentration - - Weight 74.3 kg (163 lb 12.8 oz) 02/27/2024 9:51 AM CDT Height 185.4 cm (6' 1) 02/28/2023 3:35 PM CDT Body Mass Index 21.61 02/28/2023 3:35 PM CDT Plan of Treatment Upcoming Encounters Date Type Department Care Team (Late st Contact Info) Description 06/05/2024 12:00 PM MERCHANDISE COLLECTOR Office Visit [facility] [address] [facility] [address] [place] [address] Aurea Heredia PA-C [address] [facility] [address] [place] [id number] Medical Devices Implanted Type Area Superintendent Greens Device Identifier Shelf Expiration Date Model / Serial / Lot Imp Cable Zim Cerclage 1.8x25mm 2231-08-23 - [id number] Implanted:Qty : 1 on 05/12/2022 by Be Fletcher MD at [facility] Metallic Hardware/An chor Left: Hip [employer] [id number] 08/16/2031 00-2232-0 08-22 / / [id number] Shell Actb 56mm Hip Ch Urbina Trdnt Ii Psl F Strl 74--56f - [id number] Implanted:Qty : 1 on 05/12/2022 by Be Fletcher MD at [facility] Total Joint Component/I nsert Left: Hip MARI [employer] [id number] 03/02/2027 742-11-56 F / / [id number] Insert Blake 36mm 0d F Hip X3 Trdnt 723-00-36f - [id number] Implanted:Qty : 1 on 05/12/2022 by Be Fletcher MD at [facility] Total Joint Component/I nsert Left: Hip MARI [employer] [id number] 02/06/2027 723-00-36 F / / [id number] Insignia Hip Stem, Size 6, Nk Length 35mm, Stem Length 107mm, Std Offset Implanted:Qty : 1 on 05/12/2022 by Be Fletcher MD at [facility] Total Joint Component/I nsert Left: Hip MARI [id number] 01/19/2027 6587-8041 / / [id number] Imp Head Femoral Strk Biolox Delta Ceramic 36mm +2.5mm - [id number] Implanted:Qty : 1 on 05/12/2022 by Be Fletcher MD at [facility] Total Joint Component/I nsert Left: Hip [employer] [id number] 01/12/2027 6570-0-53 6 / [id number] Procedures Procedure Name Priority Date/Time Associated Diagnosis Comments GLUCOSE Routine 05/13/2022 6:57 AM MERCHANDISE COLLECTOR from Last 3 Months or Most Recently Relevant to Health Maintenance Results * (ABNORMAL) Glucose (05/13/2022 6:57 AM MERCHANDISE COLLECTOR) Glucose 133(H) 70 - 99 mg/dL 05/13/2022 7:25 AM MERCHANDISE COLLECTOR LABORATORY Blood STRUCTURE OF LEFT HAND / Unknown Venipuncture / Unknown 05/13/2022 6:57 AM MERCHANDISE COLLECTOR 05/13/2022 7:01 AM MERCHANDISE COLLECTOR us Carlos Oleary MD LAB - BLOOD ORDERABLES Final Res ult LABORATORY [facility] Acute [facility] Lab [address] [facility] [place] Lab (1st floor, no room number) [place] [address], [facility] [phone] from Last 3 Months or Most Recently Relevant to Health Maintenance Insurance [facility] MEDICARE ADVANTAGE [facility] MEDICARE ADVANTAGE [place] [id number] Advance Directives For more information, please contact: [phone] * Full Code (Latest Code Status on [...] nikkiee nt/ legal decision maker Care Teams Allergist/Pediatric Pulmonologist Relationship Specialty Start Date End Date No Ref-Primary, Physician PCP - General 07/19/22 Chalo Santo MD [address] [address] Assigned Sleep Provider 02/27/20
--- OUTSIDE RECORDS SUMMARY | 2024-03-05 12:05 | XMS_ITS | Encounter Summary ---
Author Organization [facility] Address [address] [place] [address]. [place] [address] Care Team Providers Care Integrity Consultant Name Role Phone Chalo Santo MD Unavailable No Ref-Primary, Physician Primary Care Provider Encounter Details Date Type Department Care Team (Late st Contact Info) Description 03/02/2023 MyC Medical Advice [facility] [address] [place] [address] Earnestine Sharma Social History Tobacco Use [...] on file Legal Sex Male 3:21 AM COSMETICS SUPERVISOR Gender Identity Not on file Sexual Orientation Not on file documented as of this encounter Plan of Treatment Upcoming Encounters Date Type Department Care Team (Late st Contact Info) Description 06/05/2024 12:00 PM COSMETICS SUPERVISOR Office Visit [address] [place] [address] Aurea Heredia PA-C [address] [facility] [address] [place] [address] documented as of this encounter Visit Diagnoses Not on filedocumented in this encounter Care Teams Integrity Consultant Relationship Specialty Start Date End Date No Ref-Primary, Physician PCP - General 07/19/22 Chalo Santo MD [address] [address] Assigned Sleep Provider 02/27/20 documented as of this encounter
--- OUTSIDE RECORDS SUMMARY | 2024-03-05 12:05 | XMS_ITS | Encounter Summary ---
Author Organization [place] Address [address] [place] [address]. [place] [address] Care Team Providers Care Chute Greaser Name Role Phone [facility] Primary Care P jhonny Unavailable Chalo Santo MD Unavailable No Ref-Primary, Physician Primary Care Provider Encounter Details Date Type Department Care Team (Late st Contact Info) Description 10/28/2021 MyC Medical Advice [facility] [place] [address] [phone] Marianna Irwin CMA Social History Tobacco Use Types Packs/Day Years Used Date Smoking Tobacco: Never Smokeless Tobacco: Never Alcohol Use Standard Drinks/Week Comments Yes 0 (1 standard drink = 0.6 oz pur e alcohol) PHQ-2 Answer Date Recorded PHQ-2 Score 2 10/04/2021 Sex and Gender Information Value Date Recorded Sex Assigned at Not on file Legal Sex Male 3:21 AM PACK PRESS OPERATOR Gender Identity Not on file Sexual Orientation Not on file documented as of this encounter Plan of Treatment Upcoming Encounters Date Type Department Care Team (Late st Contact Info) Description 06/05/2024 12:00 PM PACK PRESS OPERATOR Office Visit [facility] [place] [address] [facility] 103 [place] [address] Aurea Heredia PA-C [address] [facility] 103 [place] [address] documented as of this encounter Visit Diagnoses Not on filedocumented in this encounter Care Teams Chute Greaser Relationship Specialty Start Date End Date [facility], [facility] PCP - General 10/27/14 05/15/22 No Ref-Primary, Physician PCP - General 07/19/22 Chalo Santo MD [address] [address] Assigned Sleep Provider 02/27/20 documented as of this encounter
--- OUTSIDE RECORDS SUMMARY | 2024-03-05 12:06 | XMS_ITS | Encounter Summary ---
Author Organization [facility] Address [address] [place] [address]. [place] [address] Care Team Providers Care Cigar Tobacco Rehandler Name Role Phone [facility] Primary Care P jhonny Unavailable Chalo Santo MD Unavailable No Ref-Primary, Physician Primary Care Provider Encounter Details Date Type Department Care Team (Late st Contact Info) Description 10/08/2019 MyC Medical Advice [facility] Sleep [address] [address] Melania Chang, HL7 DEVELOPER Social History Tobacco Use Types Packs/Day Years Used Date Smoking Tobacco: Never Smokeless Tobacco: Never Alcohol Use Standard Drinks/Week Comments Yes 0 (1 standard drink = 0.6 oz pur e alcohol) Sex and Gender Information Value Date Recorded Sex Assigned at Not on file Legal Sex Male 3:21 AM CONFIGURATION MANAGER Gender Identity Not on file Sexual Orientation Not on file documented as of this encounter Plan of Treatment Upcoming Encounters Date Type Department Care Team (Late st Contact Info) Description 06/05/2024 12:00 PM CONFIGURATION MANAGER Office Visit [facility] Sleep [facility] [address] [address] Aurea Heredia PA-C [address] [facility] 103 [place], [place] [address] documented as of this encounter Visit Diagnoses Not on filedocumented in this encounter Care Teams Cigar Tobacco Rehandler Relationship Specialty Start Date End Date [facility] CLOSED PCP - General 10/27/14 05/15/22 No Ref-Primary, Physician PCP - General 07/19/22 Chalo Santo MD [address] [facility] [address] [place] [address] Assigned Sleep Provider 02/27/20 documented as of this encounter
--- OUTSIDE RECORDS SUMMARY | 2024-03-05 12:06 | XMS_ITS | Encounter Summary ---
Author Organization [place] Address [address] [place] [address]. [place] [address] Care Team Providers Care Ballast Cleaning Machine Operator Name Role Phone [facility] Primary Care P jhonny Unavailable Chalo Santo MD Unavailable No Ref-Primary, Physician Primary Care Provider Encounter Details Date Type Department Care Team (Late st Contact Info) Description 01/06/2021 MyC Medical Advice [facility] Sleep [facility] [address] [place] [address] Asif Bertrand MA Social History Tobacco Use Types Packs/Day Years Used Date Smoking Tobacco: Never Smokeless Tobacco: Never Alcohol Use Standard Drinks/Week Comments Yes 0 (1 standard drink = 0.6 oz pur e alcohol) Sex and Gender Information Value Date Recorded Sex Assigned at Not on file Legal Sex Male 3:21 AM POWER BALLAST MACHINE OPERATOR Gender Identity Not on file Sexual Orientation Not on file documented as of this encounter Plan of Treatment Upcoming Encounters Date Type Department Care Team (Late st Contact Info) Description 06/05/2024 12:00 PM POWER BALLAST MACHINE OPERATOR Office Visit [facility] Sleep [place] [id number] [address] Aurea Heredia PA-C [address] [facility] 103 [place], [place] [address] documented as of this encounter Visit Diagnoses Not on filedocumented in this encounter Care Teams Ballast Cleaning Machine Operator Relationship Specialty Start Date End Date Clinic, [facility] CLOSED PCP - General 10/27/14 05/15/22 No Ref-Primary, Physician PCP - General 07/19/22 Chalo Santo MD [address] [address] Assigned Sleep Provider 02/27/20 documented as of this encounter
--- OUTSIDE RECORDS SUMMARY | 2024-03-05 12:06 | XMS_ITS | Encounter Summary ---
Author Organization [place] Address [address] [place] [address]. [place] [address] Care Team Providers Care Planetarium Technician Name Role Phone [facility], [facility] Primary Care P jhonny Unavailable Chalo Santo MD Unavailable No Ref-Primary, Physician Primary Care Provider Encounter Details Date Type Department Care Team (Late st Contact Info) Description 10/25/2018 Orders Only [facility] Sleep [facility] [address] [place] [address] Rosa Echevarria MD [address] [place] [address] [place] [address] TEODORA on CPAP (Primary Dx) Social History Tobacco Use Types Packs/Day Years Used Date Smoking Tobacco: Never Smokeless Tobacco: Never Alcohol Use Standard Drinks/Week Comments Yes 0 (1 standard drink = 0.6 oz pur e alcohol) Sex and Gender Information Value Date Recorded Sex Assigned at Not on file Legal Sex Male 3:21 AM COMPUTER NETWORK ENGINEER Gender Identity Not on file Sexual Orientation Not on file documented as of this encounter Plan of Treatment Upcoming Encounters Date Type Department Care Team (Late st Contact Info) Description 06/05/2024 12:00 PM COMPUTER NETWORK ENGINEER Office Visit [facility] Sleep [facility] [address] [facility] 103 [place] [address] Aurea Heredia PA-C [address] [facility] 103 [place] [address] documented as of this encounter Visit Diagnoses Diagnosis TEODORA on CPAP- Primary Obstructive sleep apnea (adult) (pediatric) documented in this encounter Care Teams Planetarium Technician Relationship Specialty Start Date End Date [facility], [facility] PCP - General 10/27/14 05/15/22 No Ref-Primary, Physician PCP - General 07/19/22 Chalo Santo MD [address] [place], [place] [address] [address] [address] Assigned Sleep Provider 02/27/20 documented as of this encounter
== END 2024-03-04 11:04 | disposition home or self-care (01) ==
LOC: NFLDREF 03-05 12:03
PROVIDERS: PCP Family Medicine; Referring Provider Family Medicine; Visit Provider Family Medicine
DX: D51.9 Vitamin B12 deficiency anemia, unspecified (principal); G62.9 Polyneuropathy, unspecified; Z13.1 Encounter for screening for diabetes mellitus; R53.83 Other fatigue; R10.13 Epigastric pain
CPT/HCPCS: 80053; 82607

== ENCOUNTER 2024-03-19 10:19 | Outpatient (CLI) | payer MEDICARE, SELFPAY ==
--- NOTE | 2024-03-19 11:00 | CT_ITS ---
Patient: DEIRDRE VELAZCO Facility:?[facility] RIS Patient ID:?[id number] Site Patient ID:?[id number]. Site :?1950 Study:?CT-Abdomen/Pelvis WITH 80 CC ISOVUE 370 AND WATER [place]-03/19/2024 11:13:59 AM Ordering Physician:?Delmar Hernandez Final Report: INDICATION: Left lower quadrant abdominal pain. TECHNIQUE: CT abdomen and pelvis acquired with 80 cc Isovue 370 and water preparation IV contrast. COMPARISON: CT abdomen pelvis May 2022 FINDINGS: Lower chest: No suspicious nodule or pleural effusion. Liver: Normal in size and attenuation. No suspicious masses. Gallbladder and bile ducts: Unremarkable. No stones or inflammation. No biliary dilatation. Pancreas: Unremarkable. No mass or inflammation. Spleen: Unremarkable. Normal in size. No masses. Adrenal glands: No suspicious mass. Kidneys: Again identified is bilateral renal cortical scarring and peripheral wedge-shaped hypoattenuation. No solid renal mass. No nephrolithiasis or hydronephrosis. GI tract: No evidence of bowel obstruction. Appendix is not separately identified. No inflammatory changes into the right lower quadrant. Vasculature: Abdominal aorta is normal in caliber. Mesenteric arteries are patent. Lymph nodes: No lymphadenopathy. Peritoneum/Abdominal Wall: Unremarkable. No sign of mass or infiltration. No free air or significant free fluid. Pelvis: Mild prostatomegaly. Bones: Left total hip arthroplasty. 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 Grade 1 anterolisthesis of L4 over L5 is also present. No aggressive appearing bony lesion. IMPRESSION: No acute abnormality in the abdomen and pelvis. Stable bilateral renal cortical scarring. Possible moderate spinal stenosis at L4-5 level with ossification of ligamentum flavum, consider with further evaluation MRI if indicated. Please note that all CT scans at this facility use dose modulation, iterative reconstruction, and/or weight-based dosing when appropriate to reduce radiation dose to as low as reasonably achievable. Dictated by Ashia Oneil MD @ 03/20/2024 10:07:56 AM Signed by:?Ashia Oneil MD @03/20/2024 10:07:56 AM (Electronic Signature)
== END 2024-03-19 10:20 | disposition home or self-care (01) ==
LOC: CT 10:19
PROVIDERS: PCP Family Medicine; Visit Provider Surgery
DX: R10.12 Left upper quadrant pain (principal); M48.061 Spinal stenosis, lumbar region without neurogenic claudication
CPT/HCPCS: 74177; Q9967

== ENCOUNTER 2024-04-10 08:47 | Outpatient (CLI) | payer MEDICARE, SELFPAY | END 2024-04-10 08:48 | disposition home or self-care (01) | LOC: NFLDREF 04-14 02:40 | PROVIDERS: PCP Family Medicine; Referring Provider Family Medicine; Visit Provider Family Medicine | DX: K90.49 Malabsorption due to intolerance, not elsewhere classified (principal) | CPT/HCPCS: 80053 ==

== ENCOUNTER 2024-05-08 09:10 | Outpatient (CLI) | payer MEDICARE, SELFPAY | END 2024-05-08 09:11 | disposition home or self-care (01) | LOC: NFLDREF 05-10 21:50 | PROVIDERS: PCP Family Medicine; Referring Provider Family Medicine; Visit Provider Family Medicine | DX: D51.9 Vitamin B12 deficiency anemia, unspecified (principal); Z13.9 Encounter for screening, unspecified | CPT/HCPCS: 80053 ==

== ENCOUNTER 2024-06-10 08:56 | Outpatient (CLI) | payer MEDICARE, SELFPAY | END 2024-06-10 08:57 | disposition home or self-care (01) | LOC: NFLDREF 06-11 02:01 | PROVIDERS: PCP Family Medicine; Referring Provider Family Medicine; Visit Provider Family Medicine | DX: G62.9 Polyneuropathy, unspecified (principal); D51.9 Vitamin B12 deficiency anemia, unspecified | CPT/HCPCS: 80053 ==

== ENCOUNTER 2024-07-03 09:02 | Outpatient (CLI) | payer MEDICARE, SELFPAY | END 2024-07-03 09:03 | disposition home or self-care (01) | PROVIDERS: PCP Family Medicine; Referring Provider Family Medicine; Visit Provider Family Medicine | DX: K90.49 Malabsorption due to intolerance, not elsewhere classified (principal) | CPT/HCPCS: 80053 ==

== ENCOUNTER 2024-08-01 10:13 | Outpatient (CLI) | payer MEDICARE, SELFPAY | END 2024-08-01 10:14 | disposition home or self-care (01) | LOC: NFLDREF 08-02 06:05 | PROVIDERS: PCP Family Medicine; Referring Provider Family Medicine; Visit Provider Family Medicine | DX: T56.0X1A Toxic effect of lead and its compounds, accidental (unintentional), initial encounter (principal) | CPT/HCPCS: 80053 ==

== ENCOUNTER 2024-10-08 09:13 | Outpatient (CLI) | payer MEDICARE, SELFPAY | END 2024-10-08 09:14 | disposition home or self-care (01) | LOC: NFLDREF 10-10 21:51 | PROVIDERS: PCP Family Medicine; Referring Provider Family Medicine; Visit Provider Family Medicine | DX: K90.49 Malabsorption due to intolerance, not elsewhere classified (principal) | CPT/HCPCS: 80053 ==

== ENCOUNTER 2024-12-05 08:40 | Outpatient (CLI) | payer MEDICARE, SELFPAY | END 2024-12-05 08:41 | disposition home or self-care (01) | LOC: NFLDREF 12-10 10:22 | PROVIDERS: PCP Family Medicine; Referring Provider Family Medicine; Visit Provider Family Medicine | DX: G62.9 Polyneuropathy, unspecified (principal) | CPT/HCPCS: 80053 ==

== ENCOUNTER 2025-03-04 08:24 | Outpatient (CLI) | payer MEDICARE, SELFPAY | END 2025-03-04 08:25 | disposition home or self-care (01) | LOC: NFLDREF 03-05 18:58 | PROVIDERS: PCP Family Medicine; Referring Provider Family Medicine; Visit Provider Family Medicine | DX: E55.9 Vitamin D deficiency, unspecified (principal); D51.9 Vitamin B12 deficiency anemia, unspecified; R79.89 Other specified abnormal findings of blood chemistry; R53.83 Other fatigue; N34.2 Other urethritis; F41.9 Anxiety disorder, unspecified; Z13.9 Encounter for screening, unspecified; Z12.5 Encounter for screening for malignant neoplasm of prostate | CPT/HCPCS: 80053; 80061; 82248; 82306; 82607; 84443; G0103 ==

== ENCOUNTER 2025-05-04 08:26 | Outpatient (CLI) | payer MEDICARE, SELFPAY | END 2025-05-04 08:27 | disposition home or self-care (01) | LOC: LKVREF 08:27 | PROVIDERS: PCP Family Medicine; Visit Provider Family Medicine | DX: D51.9 Vitamin B12 deficiency anemia, unspecified (principal) | CPT/HCPCS: 80053 ==